=== PATIENT | female | born 1955 | race Caucasian/White ===

== ENCOUNTER 2018-11-25 04:51 | Inpatient (IN) | payer BC | END 2018-11-27 12:40 | disposition home or self-care (01) | LOC: 4TH 11-26 14:59 → ER 04:51 → ICU 05:45 | DX: E11.10 Type 2 diabetes mellitus with ketoacidosis without coma (principal); N17.9 Acute kidney failure, unspecified; E87.2 Acidosis; E86.1 Hypovolemia; E86.0 Dehydration; R00.0 Tachycardia, unspecified; J30.2 Other seasonal allergic rhinitis; Z79.4 Long term (current) use of insulin ==

== ENCOUNTER 2019-11-30 15:17 | Inpatient (IN) | payer BC, OTHER ==
[~2019-11-30] VITALS: Ht 154.9 cm; Wt 61.0 kg
[2019-11-30] VITALS (7 sets, daily range): BP systolic 87–131; BP diastolic 41–77
[~2019-11-30 15:17] MED LIST: EMPA1TAB PO; ESTRADIOL; INSU100I10 SC; INSU100I14 SQ; PANT40TA3 PO
[2019-11-30] MEDS ORDERED: NS IV 1000 ML 1,000 ML IV SCH (15:22)
--- NOTE | 2019-11-30 15:41 | ED General ---
General Stated Complaint: BLOOD SURGAR HIGH History of Present Illness Date Seen by Provider: Nov 30, 2019 Time Seen by Provider: 15:30 Initial Comments 64-year-old female presents for hyperglycemia. She reports her blood sugars have been running in the 200 to 300s. She takes Lantus 20 units twice a day. She reports taking it this morning, she had mild nausea afterwards and did not eat. 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. She was referred here for hyperglycemia. She has a history of DKA. She denies any recent illnesses or increased stress. She denies any polyuria, polydipsia or polyphagia. Timing/Duration: 24 Hours Severity: Mild Associated Systoms: Denies Symptoms Allergies and Home Medications Allergies Coded Allergies: metformin (Verified Allergy, Intermediate, 11/25/18) insulin lispro (Verified Adverse Reaction, Severe, MAKES PTS LEGS SEVERLY WEAK, 11/26/18) MAKES PTS LEGS SEVERLY WEAK Home Medications Empagliflozin/Linagliptin 1 Each Tablet, 1 TAB PO DAILY, (Reported) Insulin Aspart 300 Units/3 Ml Solution, 3 UNITS SQ AC Prescribed by: EMETERIO LANG on 11/27/18 1001 Insulin Glargine,Hum.rec.anlog 100 Unit/1 Ml Insuln.pen, 30 UNITS SC HS, (Reported) Pantoprazole Sodium 40 Mg Tablet.dr, 40 MG PO DAILY PRN for HEARTBURN, (Reported) Patient Home Medication List Home Medication List Reviewed: Yes Review of Systems Review of Systems Constitutional: see HPI; No fever; malaise, weakness EENTM: see HPI, no symptoms reported Respiratory: no symptoms reported, see HPI Cardiovascular: see HPI Gastrointestinal: no symptoms reported, see HPI, nausea (earlier today, none present at this time.) Genitourinary: no symptoms reported, see HPI; No dysuria, No frequency Musculoskeletal: no symptoms reported, see HPI Skin: no symptoms reported, see HPI Psychiatric/Neurological: No Symptoms Reported, See HPI Hematologic/Lymphatic: No Symptoms Reported, See HPI All Other Systems Reviewed Negative Unless Noted: Yes Past Xbsbzwv-Jfhwzl-Eyehwm Hx Past Med/Social Hx: Reviewed Nursing Past Med/Soc Hx Patient Social History Recent Foreign Travel: No Contact w/Someone Who Travel: No Recent Hopitalizations: Yes Seasonal Allergies Seasonal Allergies: Yes Past Medical History Surgeries: Yes (HYST/OVARIES INTACT; LEFT ARM BENIGN TUMOR REMOVED. 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 0.0oz. [id number]; 17.9 BMI Method:Stated General Appearance: No Apparent Distress, WD/WN Eyes: Bilateral Eye Normal Inspection, Bilateral Eye PERRL, Bilateral Eye EOMI HEENT: PERRL/EOMI, TMs Normal, Normal ENT Inspection, Pharynx Normal Neck: Full Range of Motion, Normal Inspection, Non Tender, Supple Respiratory: Chest Non Tender, Lungs Clear, Normal Breath Sounds Cardiovascular: Regular Rate, Rhythm, No Edema, No Murmur, Normal Peripheral Pulses Gastrointestinal: Normal Bowel Sounds, Non Tender, Soft Extremity: Normal Capillary Refill, Normal Inspection, Normal Range of Motion, Non Tender, No Pedal Edema Neurologic/Psychiatric: Alert, Oriented x3, No Motor/Sensory Deficits, Normal Mood/Affect, relationship management lead II-XII Norm as Tested Skin: Normal Color, Warm/Dry; No Cyanosis, No Diaphoresis, No Petechia, No Rash Lymphatic: No Adenopathy Focused Exam Lactate Level 11/30/19 15:55: Lactic Acid Level 1.74 Lactic Acid Level Laboratory Tests Test 11/30/19 15:55 Lactic Acid Level 1.74 MMOL/L (0.50-2.00) Progress/Results/Core Measures Suspected Sepsis SIRS Temperature: Pulse: Respiratory Rate: Laboratory Tests 11/30/19 15:55: White Blood Count 15.2H Blood Pressure / Mean: 11/30/19 15:55: Lactic Acid Level 1.74 Laboratory Tests 11/30/19 15:55: Creatinine 1.67H, Platelet Count 347, Total Bilirubin 0.3 Results/Orders Lab Results Laboratory Tests Test 11/30/19 15:27 11/30/19 15:44 11/30/19 15:55 11/30/19 16:58 Range/Units Glucometer > 600 *H 574 *H 70-110 MG/DL Blood Gas Puncture Site UNK Blood Gas Patient Temperature 36.6 Arterial Blood pH 7.20 *L 7.37-7.43 Arterial Blood Partial Pressure CO2 18 *L 35-45 MMHG Arterial Blood Partial Pressure O2 110 H 79-93 MMHG Arterial Blood HCO3 7 *L 23-27 MMOL/L Arterial Blood Total CO2 7.5 L 21.0-31.0 MMOL/L Arterial Blood Oxygen Saturation 98 94-100 % Arterial Blood Base Excess -19.8 L -2.5-2.5 MMOL/L Mehran Test UNK Blood Gas Ventilator Setting NO Blood Gas Inspired Oxygen UNK White Blood Count 15.2 H 4.3-11.0 10^3/uL Red Blood Count 4.41 4.35-5.85 10^6/uL Hemoglobin 12.9 11.5-16.0 G/DL Hematocrit 39 35-52 % Mean Corpuscular Volume 88 80-99 FL Mean Corpuscular Hemoglobin 29 25-34 PG Mean Corpuscular Hemoglobin Concent 33 32-36 G/DL Red Cell Distribution Width 13.2 10.0-14.5 % Platelet Count 347 130-400 10^3/uL Mean Platelet Volume 10.7 H 7.4-10.4 FL Neutrophils (%) (Auto) 90 H 42-75 % Lymphocytes (%) (Auto) 6 L 12-44 % Monocytes (%) (Auto) 5 0-12 % Eosinophils (%) (Auto) 0 0-10 % Basophils (%) (Auto) 0 0-10 % Neutrophils # (Auto) 13.6 H 1.8-7.8 X 10^3 Lymphocytes # (Auto) 0.8 L 1.0-4.0 X 10^3 Monocytes # (Auto) 0.7 0.0-1.0 X 10^3 Eosinophils # (Auto) 0.0 0.0-0.3 10^3/uL Basophils # (Auto) 0.0 0.0-0.1 10^3/uL Neutrophils % (Manual) 85 % Lymphocytes % (Manual) 10 % Monocytes % (Manual) 4 % Eosinophils % (Manual) 0 % Basophils % (Manual) 0 % Band Neutrophils 1 % Blood Morphology Comment NORMAL Sodium Level 129 L 135-145 MMOL/L Potassium Level 5.4 H 3.6-5.0 MMOL/L Chloride Level 94 L 98-107 MMOL/L Carbon Dioxide Level 5 *L 21-32 MMOL/L Anion Gap 30 H 5-14 MMOL/L Blood Urea Nitrogen 30 H 7-18 MG/DL Creatinine 1.67 H 0.60-1.30 MG/DL Estimat Glomerular Filtration Rate 31 BUN/Creatinine Ratio 18 Glucose Level 702 *H 70-105 MG/DL Lactic Acid Level 1.74 0.50-2.00 MMOL/L Calcium Level 9.7 8.5-10.1 MG/DL Corrected Calcium 9.5 8.5-10.1 MG/DL Total Bilirubin 0.3 0.1-1.0 MG/DL Aspartate Amino Transf (AST/SGOT) 19 5-34 U/L Alanine Aminotransferase (ALT/SGPT) 18 0-55 U/L Alkaline Phosphatase 135 40-136 U/L Total Protein 7.2 6.4-8.2 GM/DL Albumin 4.3 3.2-4.5 GM/DL Beta-Hydroxybutyrate (Chem panel) 11.68 H 0.00-0.27 MMOL/L Test 11/30/19 17:06 11/30/19 18:00 Range/Units Urine Color YELLOW Urine Clarity CLEAR Urine pH 5.0 5-9 Urine Specific [place] 1.025 H 1.016-1.022 Urine Protein NEGATIVE NEGATIVE Urine Glucose (UA) 3+ H NEGATIVE Urine Ketones 3+ H NEGATIVE Urine Nitrite NEGATIVE NEGATIVE Urine Bilirubin NEGATIVE NEGATIVE Urine Urobilinogen 0.2 < = 1.0 MG/DL Urine Leukocyte Esterase NEGATIVE NEGATIVE Urine RBC (Auto) TRACE-I NEGATIVE Urine RBC RARE /HPF Urine WBC RARE /HPF Urine Squamous Epithelial Cells 0-2 /HPF Urine Crystals NONE /LPF Urine Bacteria TRACE /HPF Urine Casts NONE /LPF Urine Mucus NEGATIVE /LPF Urine Culture Indicated NO Glucometer 432 *H 70-110 MG/DL My Orders Orders - IVAN DUMAS Cbc With Automated Diff (11/30/19 15:22) Comprehensive Metabolic Panel (11/30/19 15:22) Ua Culture If Indicated (11/30/19 15:22) Ed Iv/Invasive Line Start (11/30/19 15:22) Ns Iv 1000 Ml (Sodium Chloride 0.9%) (11/30/19 15:22) Accucheck Stat ONCE (11/30/19 15:22) Arterial Blood Gas (11/30/19 15:38) Insulin Aspart (Novolog) (Novolog (Charg (11/30/19 15:45) Lactic Acid Analyzer (11/30/19 15:54) Sodium Bicarbonate 8.4% Vial (Sodium Bic (11/30/19 16:30) Manual Differential (11/30/19 15:55) Accucheck Stat ONCE (11/30/19 16:43) Hemoglobin A1c (11/30/19 17:07) Ed Iv/Invasive Line Start (11/30/19 17:08) Ns Iv 1000 Ml (Sodium Chloride 0.9%) (11/30/19 17:08) Medications Given in ED Current Medications Medications Dose Ordered Sig/Rosy Route Start Time Stop Time Status Last Admin Dose Admin Insulin Aspart 10 unit ONCE ONCE SC 11/30/19 15:45 11/30/19 15:46 DC 11/30/19 16:05 10 UNIT Sodium Bicarbonate 50 meq ONCE ONCE IV 11/30/19 16:30 11/30/19 16:31 DC 11/30/19 16:57 50 MEQ Vital Signs/I&O 11/30/19 11/30/19 11/30/19 11/30/19 15:25 17:45 17:56 18:00 Temp 36.6 36.8 Pulse 112 114 109 Resp 22 B/P (MAP) 152/86 (108) 131/77 (95) O2 Delivery Room Air 11/30/19 18:00 Pulse 108 Resp 20 B/P (MAP) 122/74 (90) Pulse Ox 99 O2 Delivery Room Air Capillary Refill : Progress Note : Time: 15:30 Progress Note Patient seen and evaluated, will obtain Accu-Chek, labs and address glucose accordingly. Normal saline 1 L per IV. 1545 Glucometer greater than 600, Will give Humalog insulin 10 units subcutaneous now. 1600 ABG show DKA, pH is 7.2, bicarbonate is 7. Awaiting other labs. Will give 1 amp of sodium bicarbonate. [address] Gault about patient, he agreed to admit to ICU for insulin drip and management of DKA. 1700 discussed plan of care with patient, her and family agree with this. No questions answered. She's can continue to be alert and oriented with stable vital signs other than a pulse of 90-110. She reports no nausea or vomiting. Will follow DKA protocol. Departure Impression Primary Impression: Hyperglycemia Additional Impression: Diabetic ketoacidosis Qualified Codes: E11.10 - Type 2 diabetes mellitus with ketoacidosis without coma Disposition: ADMITTED INPATIENT Condition: Stable Admissions Decision to Admit Reason: Admit from ER (General) Decision to Admit/Date: Nov 30, 2019 Time/Decision to Admit Time: 17:00 Departure-Patient Inst. Referrals: VY MCINTYRE MD (PCP/Family) Primary Care Physician IVAN DUMAS Nov 30, 2019 15:41
[2019-11-30] MEDS ORDERED: inSUlin ASPART (NovoLOG) 1 UNIT/0.01 ML (CHARGE PER UNIT) SC ONE (15:45)
[2019-11-30 15:52] LABS: ABG BASE EXCESS -19.8 MMOL/L (-2.5-2.5); ABG OXYGEN SATURATION 98 % (94-100); ABG PO2 110 MMHG (79-93); ABG TCO2 7.5 MMOL/L (21.0-31.0)
[2019-11-30 16:02] LABS: ABG PCO2 18 MMHG (35-45)
[2019-11-30 16:03] LABS: PATIENT TEMP 36.6; VENTILATOR NO
[2019-11-30 16:16] LABS: BASOPHILS % (AUTO) 0 % (0-10); EOSINOPHILS % (AUTO) 0 % (0-10); HEMATOCRIT 39 % (35-52); HEMOGLOBIN 12.9 G/DL (11.5-16.0); LYMPHOCYTES # (AUTO) 0.8 X 10^3 (1.0-4.0); LYMPHOCYTES % (AUTO) 6 % (12-44); MEAN CORPUSCULAR HEMOGLOBIN 29 PG (25-34); MEAN CORPUSCULAR HGB CONC 33 G/DL (32-36); MEAN CORPUSCULAR VOLUME 88 FL (80-99); MEAN PLATELET VOLUME 10.7 FL (7.4-10.4); MONOCYTES # (AUTO) 0.7 X 10^3 (0.0-1.0); MONOCYTES % (AUTO) 5 % (0-12); NEUTROPHILS # (AUTO) 13.6 X 10^3 (1.8-7.8); NEUTROPHILS % (AUTO) 90 % (42-75); PLATELET COUNT 347 10^3/uL (130-400); RED CELL DISTRIBUTION WIDTH 13.2 % (10.0-14.5); WHITE BLOOD COUNT 15.2 10^3/uL (4.3-11.0)
[2019-11-30] MEDS ORDERED: SODIUM BICARB 8.4% 50 MEQ/50 ML VIAL IV ONE (16:30)
[2019-11-30 16:43] LABS: ALBUMIN 4.3 GM/DL (3.2-4.5); BILIRUBIN,TOTAL 0.3 MG/DL (0.1-1.0); CALCIUM 9.7 MG/DL (8.5-10.1); CREATININE SERUM 1.67 MG/DL (0.60-1.30); POTASSIUM 5.4 MMOL/L (3.6-5.0); TOTAL PROTEIN 7.2 GM/DL (6.4-8.2)
[2019-11-30 17:01] LABS: BAND NEUTROPHILS 1 %; BASOPHILS % (MANUAL) 0 %; EOSINOPHILS % (MANUAL) 0 %; LYMPHOCYTES % (MANUAL) 10 %; MONOCYTES % (MANUAL) 4 %; NEUTROPHILS % (MANUAL) 85 %; RBC MORPH NORMAL
[2019-11-30 17:14] LABS: BILIRUBIN,URINE NEGATIVE (NEGATIVE); CLARITY,URINE CLEAR; COLOR,URINE YELLOW; GLUCOSE, URINE (UA) 3+ (NEGATIVE); KETONES,URINE 3+ (NEGATIVE); LEUKOCYTE ESTERASE ,URINE NEGATIVE (NEGATIVE); NITRITE,URINE NEGATIVE (NEGATIVE); PROTEIN,URINE NEGATIVE (NEGATIVE)
[2019-11-30] MEDS: NS IV 1000 ML 1,000 ML IV SCH ×2 (17:20→17:21)
[2019-11-30 17:25] LABS: BACTERIA,URINE TRACE /HPF; RBC,URINE RARE /HPF; SQUAMOUS EPITHELIAL CELL,UR 0-2 /HPF; WBC,URINE RARE /HPF
[2019-11-30] MEDS ORDERED: 1/2 NS IV SOLUTION 1,000 ML IV ONE (17:57)
[2019-11-30] MEDS ORDERED: POTASSIUM CL 10MEQ/50ML IVPB 50 ML IV SCH (18:15)
[2019-11-30] MEDS ORDERED: inSUlin REGULAR TPN/DRIP ONLY 250 UNITS in NORMAL SALINE 250 ML IV SCH (18:15)
[2019-11-30] MEDS ORDERED: ACETAMINOPHEN 325 MG TABLET PO PRN (18:30)
[2019-11-30] MEDS ORDERED: CATHETER FLUSH 10 ML SYR IV PRN (18:30)
[2019-11-30] MEDS: 1/2 NS IV SOLUTION 1,000 ML IV SCH ×2 (18:59→22:18)
[2019-11-30] MEDS ORDERED: RT-ALBUTEROL/IPRATROPIUM 3 ML (DUONEB) VIAL INH PRN (19:15)
[2019-11-30 19:25] LABS: CALCIUM 9.1 MG/DL (8.5-10.1); CREATININE SERUM 1.47 MG/DL (0.60-1.30); POTASSIUM 4.3 MMOL/L (3.6-5.0)
[2019-11-30] MEDS: POTASSIUM CL 10MEQ/50ML IVPB 50 ML IV SCH ×3 (20:01→23:57)
[2019-11-30] MEDS: ONDANSETRON 4 MG/2 ML (SDV) Z0FRAN IV PRN (23:55)
[2019-12-01] VITALS (17 sets, daily range): BP systolic 85–114; BP diastolic 47–83
[2019-12-01] MEDS: D5 1/2 NS 1000 ML IV SOLUTION 1,000 ML IV SCH ×3 (00:28→08:37)
[2019-12-01] MEDS: 1/2 NS IV SOLUTION 1,000 ML IV SCH ×2 (02:01→05:09)
[2019-12-01] MEDS: POTASSIUM CL 10MEQ/50ML IVPB 50 ML IV SCH ×4 (02:01→08:38)
[2019-12-01 03:47] LABS: BASOPHILS % (AUTO) 0 % (0-10); EOSINOPHILS # (AUTO) 0.1 10^3/uL (0.0-0.3); EOSINOPHILS % (AUTO) 1 % (0-10); HEMATOCRIT 30 % (35-52); LYMPHOCYTES # (AUTO) 3.1 X 10^3 (1.0-4.0); LYMPHOCYTES % (AUTO) 25 % (12-44); MEAN CORPUSCULAR HEMOGLOBIN 29 PG (25-34); MEAN CORPUSCULAR HGB CONC 34 G/DL (32-36); MEAN CORPUSCULAR VOLUME 87 FL (80-99); MEAN PLATELET VOLUME 10.1 FL (7.4-10.4); MONOCYTES # (AUTO) 1.5 X 10^3 (0.0-1.0); MONOCYTES % (AUTO) 12 % (0-12); NEUTROPHILS # (AUTO) 7.8 X 10^3 (1.8-7.8); NEUTROPHILS % (AUTO) 62 % (42-75); PLATELET COUNT 297 10^3/uL (130-400); RED CELL DISTRIBUTION WIDTH 13.1 % (10.0-14.5); WHITE BLOOD COUNT 12.5 10^3/uL (4.3-11.0)
[2019-12-01 03:57] LABS: HEMOGLOBIN 10.3 G/DL (11.5-16.0)
[2019-12-01 04:13] LABS: ALBUMIN 3.2 GM/DL (3.2-4.5); BILIRUBIN,TOTAL 0.3 MG/DL (0.1-1.0); CALCIUM 8.2 MG/DL (8.5-10.1); CREATININE SERUM 1.05 MG/DL (0.60-1.30); PHOSPHORUS 1.9 MG/DL (2.3-4.7); POTASSIUM 4.1 MMOL/L (3.6-5.0); TOTAL PROTEIN 5.2 GM/DL (6.4-8.2)
[2019-12-01 04:38] LABS: MAGNESIUM 1.6 MG/DL (1.6-2.4)
[2019-12-01] MEDS: MAGNESIUM 1 GM/100 ML IVPB 100 ML IV SCH (05:23)
[2019-12-01] MEDS ORDERED: MAGNESIUM 1 GM/100 ML IVPB 100 ML IV SCH (06:00)
[2019-12-01] MEDS ORDERED: POTASSIUM CL 10MEQ/50ML IVPB 50 ML IV SCH (06:00)
[2019-12-01] MEDS ORDERED: KCL 20 MEQ TAB (K-DUR) PO SCH (06:00)
[2019-12-01] MEDS ORDERED: LINA5TAB PO (09:04)
[2019-12-01] MEDS ORDERED: INSU100I29 SQ (09:04)
[2019-12-01] MEDS ORDERED: EMPA25TA PO (09:04)
[2019-12-01] MEDS ORDERED: LISI-552 PO (09:04)
--- NOTE | 2019-12-01 09:04 | NUR ---
SPOKE WITH THE PATIENT ABOUT HER MEDICATIONS. SHE LISTED THEM TO ME, I CALLED [facility] TO VERIFY DOSES AND FILL DATES. [facility] FILLED: 11-08-19 LISINOPRIL 20MG DAILY 11-08-19 TRADJENTA 5MG DAILY 11-08-19 JARDIANCE 25MG DAILY 10-06-19 LEVEMIR PENS 20 UNITS BID SHE STATES SHE USED TO TAKE ADVIL NEEDED BUT WAS RECENTLY TOLD TO STOP TAKING THAT. SHE MAY START USING TYLENOL PRN OTC BUT DOES NOT TAKE ANY OTHER OTC VITAMINS OR SUPPLEMENTS.
--- NOTE | 2019-12-01 09:08 | Diagnostic Imaging Report ---
INDICATION: Dyspnea and diabetic ketoacidosis. Frontal chest obtained at 0356 a.m. is compared to 11/25/2018. Heart is normal in size. Mediastinal silhouette is unremarkable lungs show no focal infiltrates. There is a calcified granuloma in the left upper lobe which is unchanged. There is no pneumothorax or pleural fluid. IMPRESSION: No acute process in the chest and no change from 11/25/2018. Dictated by: Dictated on workstation # [id number]
--- NOTE | 2019-12-01 09:51 | History & Physical ---
HPI History of Present Illness: Pt stated that yesterday morning her blood sugar was 355, she took shot of levemir 20 units and went to work, but blood sugar went up to above 500. She did not eat anything in between the readings. She usually takes levemir 20 units twice daily, does not use mealtime, denies being out of insulin or missing doses. She has had very high blood sugar requiring hospital admission last November. She denies any preexisting illness and felt fine until her blood sugar started going up. Denies fever, nasal congestion, sore throat, chest pain, cough, vomiting, diarrhea, constipation, dysuria. She did have red itchy rash that started after she was on Jardiance for about 3 weeks, 2 days ago she stopped it and rash has resolved. She does admit nausea and had diarrhea starting after her blood sugar was high. She did vomit some green appearing vomit at clinic yesterday pm when she drank a few sips of water. 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 Patients Allergies have been reviewed. Allergies Coded Allergies: metformin (Verified Allergy, Intermediate, 11/25/18) insulin lispro (Verified Adverse Reaction, Severe, MAKES PTS LEGS SEVERLY WEAK, 11/26/18) MAKES PTS LEGS SEVERLY WEAK AZD-Owcwla-Scsoep Hx Patient Social History Alcohol Use: Denies Use Recreational Drug Use: No Smoking Status: Never a Smoker 2nd Hand Smoke Exposure: No Recent Foreign Travel: No Contact w/other who traveled: No Recent Hopitalizations: No Recent Infectious Disease Expo: No Immunizations Up To Date Date of Influenza Vaccine: Oct 26, 2019 Past Medical History PMHx: Diabetes Hypertension SurgHx: Lump removal from upper left arm Gall bladder Partial hysterectomy Family Medical History Significant Family History: Heart Disease, Cancer, CVA, Diabetes Review of Systems ([facility]) Constitutional: see HPI EENTM: see HPI Respiratory: short of breath Cardiovascular: see HPI Gastrointestinal: see HPI Genitourinary: see HPI Musculoskeletal: No joint pain, No muscle pain Skin: see HPI Psychiatric/Neurological: Denies Anxiety, Denies Depressed Reviewed Test Results Reviewed Test Results Lab Laboratory Tests Test 11/30/19 15:27 11/30/19 15:44 11/30/19 15:55 11/30/19 16:58 Range/Units Glucometer > 600 *H 574 *H 70-110 MG/DL Blood Gas Puncture Site UNK Blood Gas Patient Temperature 36.6 Arterial Blood pH 7.20 *L 7.37-7.43 Arterial Blood Partial Pressure CO2 18 *L 35-45 MMHG Arterial Blood Partial Pressure O2 110 H 79-93 MMHG Arterial Blood HCO3 7 *L 23-27 MMOL/L Arterial Blood Total CO2 7.5 L 21.0-31.0 MMOL/L Arterial Blood Oxygen Saturation 98 94-100 % Arterial Blood Base Excess -19.8 L -2.5-2.5 MMOL/L Mehran Test UNK Blood Gas Ventilator Setting NO Blood Gas Inspired Oxygen UNK White Blood Count 15.2 H 4.3-11.0 10^3/uL Red Blood Count 4.41 4.35-5.85 10^6/uL Hemoglobin 12.9 11.5-16.0 G/DL Hematocrit 39 35-52 % Mean Corpuscular Volume 88 80-99 FL Mean Corpuscular Hemoglobin 29 25-34 PG Mean Corpuscular Hemoglobin Concent 33 32-36 G/DL Red Cell Distribution Width 13.2 10.0-14.5 % Platelet Count 347 130-400 10^3/uL Mean Platelet Volume 10.7 H 7.4-10.4 FL Neutrophils (%) (Auto) 90 H 42-75 % Lymphocytes (%) (Auto) 6 L 12-44 % Monocytes (%) (Auto) 5 0-12 % Eosinophils (%) (Auto) 0 0-10 % Basophils (%) (Auto) 0 0-10 % Neutrophils # (Auto) 13.6 H 1.8-7.8 X 10^3 Lymphocytes # (Auto) 0.8 L 1.0-4.0 X 10^3 Monocytes # (Auto) 0.7 0.0-1.0 X 10^3 Eosinophils # (Auto) 0.0 0.0-0.3 10^3/uL Basophils # (Auto) 0.0 0.0-0.1 10^3/uL Neutrophils % (Manual) 85 % Lymphocytes % (Manual) 10 % Monocytes % (Manual) 4 % Eosinophils % (Manual) 0 % Basophils % (Manual) 0 % Band Neutrophils 1 % Blood Morphology Comment NORMAL Sodium Level 129 L 135-145 MMOL/L Potassium Level 5.4 H 3.6-5.0 MMOL/L Chloride Level 94 L 98-107 MMOL/L Carbon Dioxide Level 5 *L 21-32 MMOL/L Anion Gap 30 H 5-14 MMOL/L Blood Urea Nitrogen 30 H 7-18 MG/DL Creatinine 1.67 H 0.60-1.30 MG/DL Estimat Glomerular Filtration Rate 31 BUN/Creatinine Ratio 18 Glucose Level 702 *H 70-105 MG/DL Lactic Acid Level 1.74 0.50-2.00 MMOL/L Calcium Level 9.7 8.5-10.1 MG/DL Corrected Calcium 9.5 8.5-10.1 MG/DL Total Bilirubin 0.3 0.1-1.0 MG/DL Aspartate Amino Transf (AST/SGOT) 19 5-34 U/L Alanine Aminotransferase (ALT/SGPT) 18 0-55 U/L Alkaline Phosphatase 135 40-136 U/L Total Protein 7.2 6.4-8.2 GM/DL Albumin 4.3 3.2-4.5 GM/DL Beta-Hydroxybutyrate (Chem panel) 11.68 H 0.00-0.27 MMOL/L Test 11/30/19 17:06 11/30/19 18:00 11/30/19 18:59 11/30/19 19:00 Range/Units Urine Color YELLOW Urine Clarity CLEAR Urine pH 5.0 5-9 Urine Specific [place] 1.025 H 1.016-1.022 Urine Protein NEGATIVE NEGATIVE Urine Glucose (UA) 3+ H NEGATIVE Urine Ketones 3+ H NEGATIVE Urine Nitrite NEGATIVE NEGATIVE Urine Bilirubin NEGATIVE NEGATIVE Urine Urobilinogen 0.2 < = 1.0 MG/DL Urine Leukocyte Esterase NEGATIVE NEGATIVE Urine RBC (Auto) TRACE-I NEGATIVE Urine RBC RARE /HPF Urine WBC RARE /HPF Urine Squamous Epithelial Cells 0-2 /HPF Urine Crystals NONE /LPF Urine Bacteria TRACE /HPF Urine Casts NONE /LPF Urine Mucus NEGATIVE /LPF Urine Culture Indicated NO Glucometer 432 *H 372 H 70-110 MG/DL Sodium Level 133 L 135-145 MMOL/L Potassium Level 4.3 3.6-5.0 MMOL/L Chloride Level 100 98-107 MMOL/L Carbon Dioxide Level 11 L 21-32 MMOL/L Anion Gap 22 H 5-14 MMOL/L Blood Urea Nitrogen 28 H 7-18 MG/DL Creatinine 1.47 H 0.60-1.30 MG/DL Estimat Glomerular Filtration Rate 36 BUN/Creatinine Ratio 19 Glucose Level 418 *H 70-105 MG/DL Calcium Level 9.1 8.5-10.1 MG/DL Test 11/30/19 21:34 11/30/19 22:22 11/30/19 23:27 12/01/19 00:22 Range/Units Glucometer 355 H 303 H 251 H 144 H 70-110 MG/DL Test 12/01/19 01:57 12/01/19 02:51 12/01/19 02:59 12/01/19 03:57 Range/Units Glucometer 166 H 155 H 165 H 70-110 MG/DL White Blood Count 12.5 H 4.3-11.0 10^3/uL Red Blood Count 3.50 L 4.35-5.85 10^6/uL Hemoglobin 10.3 #L 11.5-16.0 G/DL Hematocrit 30 L 35-52 % Mean Corpuscular Volume 87 80-99 FL Mean Corpuscular Hemoglobin 29 25-34 PG Mean Corpuscular Hemoglobin Concent 34 32-36 G/DL Red Cell Distribution Width 13.1 10.0-14.5 % Platelet Count 297 130-400 10^3/uL Mean Platelet Volume 10.1 7.4-10.4 FL Neutrophils (%) (Auto) 62 42-75 % Lymphocytes (%) (Auto) 25 12-44 % Monocytes (%) (Auto) 12 0-12 % Eosinophils (%) (Auto) 1 0-10 % Basophils (%) (Auto) 0 0-10 % Neutrophils # (Auto) 7.8 1.8-7.8 X 10^3 Lymphocytes # (Auto) 3.1 1.0-4.0 X 10^3 Monocytes # (Auto) 1.5 H 0.0-1.0 X 10^3 Eosinophils # (Auto) 0.1 0.0-0.3 10^3/uL Basophils # (Auto) 0.0 0.0-0.1 10^3/uL Sodium Level 133 L 135-145 MMOL/L Potassium Level 4.1 3.6-5.0 MMOL/L Chloride Level 108 H 98-107 MMOL/L Carbon Dioxide Level 17 L 21-32 MMOL/L Anion Gap 8 5-14 MMOL/L Blood Urea Nitrogen 23 H 7-18 MG/DL Creatinine 1.05 0.60-1.30 MG/DL Estimat Glomerular Filtration Rate 53 BUN/Creatinine Ratio 22 Glucose Level 151 H 70-105 MG/DL Calcium Level 8.2 L 8.5-10.1 MG/DL Corrected Calcium 8.8 8.5-10.1 MG/DL Phosphorus Level 1.9 L 2.3-4.7 MG/DL Magnesium Level 1.6 1.6-2.4 MG/DL Total Bilirubin 0.3 0.1-1.0 MG/DL Aspartate Amino Transf (AST/SGOT) 13 5-34 U/L Alanine Aminotransferase (ALT/SGPT) 12 0-55 U/L Alkaline Phosphatase 94 40-136 U/L Total Protein 5.2 L 6.4-8.2 GM/DL Albumin 3.2 3.2-4.5 GM/DL Test 12/01/19 04:59 12/01/19 06:30 12/01/19 07:30 12/01/19 08:40 Range/Units Glucometer 132 H 186 H 188 H 278 H 70-110 MG/DL Test 12/01/19 09:44 Range/Units Glucometer 258 H 70-110 MG/DL Physical Exam-(CHC) Physical Exam Vital Signs VS - Last 72 Hours, by Label 11/30/19 11/30/19 11/30/19 11/30/19 15:25 17:45 17:56 18:00 Temp 36.6 36.8 Pulse 112 114 109 Resp 22 B/P (MAP) 152/86 (108) 131/77 (95) O2 Delivery Room Air 11/30/19 11/30/19 11/30/19 11/30/19 18:00 18:30 19:00 19:00 Pulse 108 111 114 Resp 20 23 B/P (MAP) 122/74 (90) 101/61 (74) Pulse Ox 99 97 99 O2 Delivery Room Air Room Air Room Air 11/30/19 11/30/19 11/30/19 11/30/19 19:10 19:14 19:20 19:30 Pulse 106 B/P (MAP) Pulse Ox 99 99 99 O2 Delivery Room Air Room Air Room Air 11/30/19 11/30/19 11/30/19 11/30/19 20:00 20:00 21:00 22:00 Temp 36.7 Pulse 105 111 100 Resp 19 20 17 B/P (MAP) 93/41 (58) 87/53 (64) 111/58 (75) Pulse Ox 99 98 96 O2 Delivery Room Air Room Air Room Air 11/30/19 11/30/19 11/30/19 11/30/19 22:25 23:00 23:30 23:30 Temp 36.7 Pulse 101 Resp 21 B/P (MAP) 100/58 (72) Pulse Ox 96 98 O2 Delivery Room Air Room Air 12/01/19 12/01/19 12/01/19 12/01/19 00:00 01:00 01:00 02:00 Pulse 98 105 93 92 Resp 16 16 15 B/P (MAP) 113/69 (84) 86/63 (71) 97/62 (74) Pulse Ox 98 97 97 O2 Delivery Room Air Room Air Room Air 12/01/19 12/01/19 12/01/19 12/01/19 02:45 03:00 04:00 04:00 Temp 36.6 Pulse 88 95 87 Resp 13 16 18 B/P (MAP) 92/47 (62) 97/60 (72) Pulse Ox 96 98 99 96 O2 Delivery Room Air Room Air Room Air Room Air 12/01/19 12/01/19 12/01/19 12/01/19 05:00 06:00 07:00 07:00 Pulse 93 85 82 84 Resp 20 17 16 B/P (MAP) 97/58 (71) 85/48 (60) 92/51 (65) Pulse Ox 98 98 98 O2 Delivery Room Air Room Air Room Air 12/01/19 12/01/19 12/01/19 12/01/19 08:00 08:00 09:00 10:00 Pulse 92 85 85 Resp 11 9 17 B/P (MAP) 106/73 (84) 114/83 (93) 93/67 (76) Pulse Ox 100 99 99 98 O2 Delivery Room Air Room Air Room Air Room Air 12/01/19 12/01/19 12/01/19 12/01/19 11:00 12:00 12:00 12:05 Temp 37.1 Pulse 90 80 Resp 37 16 B/P (MAP) 85/69 (74) Pulse Ox 97 97 97 O2 Delivery Room Air Room Air Room Air 12/01/19 12/01/19 12/01/19 12/01/19 12:08 12:13 12:30 13:00 Temp 36.6 Pulse 88 79 Resp 17 B/P (MAP) 105/80 (88) Pulse Ox 95 95 97 O2 Delivery Room Air Room Air 12/01/19 12/01/19 12/01/19 13:00 14:00 15:00 Pulse 81 78 81 Resp 15 16 B/P (MAP) 93/62 (72) Pulse Ox 95 96 O2 Delivery Room Air Room Air Capillary Refill : Less Than 3 Seconds General Appearance: no apparent distress Respiratory: lungs clear, normal breath sounds Cardiovascular: regular rate, rhythm, no murmur Gastrointestinal: normal bowel sounds, non tender, soft Extremities: no pedal edema Neurologic/Psychiatric: alert, normal mood/affect Skin: normal color, warm/dry Assessment/Plan Assessment/Plan Admission Status: Inpatient Order (span 2 midnights) Reason for Inpatient Admission: Diabetic ketoacidosis requiring IV insulin drip. (1) DKA (diabetic ketoacidoses) Status: Acute Assessment & Plan: On insulin drip since admit, gap is closed and blood sugar down this morning, will start levemir and d/c drip. Suspect occurred due to stopping empagliflozin, but it does sound as if she had a reaction to it, so will need to adjust other meds. Qualifiers: (2) SEAN (acute kidney injury) Status: Resolved (3) DVT prophylaxis Status: Acute Assessment & Plan: Enoxaparin Clinical Quality Measures DVT/VTE Risk/Contraindication: Risk Factor Score Per Nursin RFS Level Per Nursing on Admit: 3=High URVASHI ARTEAGA MD Dec 01, 2019 09:51
[2019-12-01] MEDS: inSUlin ASPART (NovoLOG) 1 UNIT/0.01 ML (CHARGE PER UNIT) SC SCH ×3 (12:08→20:39)
--- NOTE | 2019-12-01 15:35 | NUR ---
1515 PT TO ROOM 428 VIA W/C ACCOMPANIED BY THIS RN. ALL PERSONAL BELONGINGS SENT DOWN WITH PT. REPORT GIVEN TO PETRA Martínez RN.
[2019-12-01] MEDS ORDERED: ENOXAPARIN 40 MG/0.4 ML (LOVENOX) SYR SQ SCH (16:00)
[2019-12-02 00:18] VITALS: BP 113/72
[2019-12-02] MEDS: inSUlin ASPART (NovoLOG) 1 UNIT/0.01 ML (CHARGE PER UNIT) SC SCH ×2 (06:54→11:00)
[2019-12-02 08:00] VITALS: BP 130/77
[2019-12-02] MEDS: ONDANSETRON 4 MG/2 ML (SDV) Z0FRAN IV PRN (08:40)
[2019-12-02] MEDS ORDERED: ONDA4TAB11 PO (10:56)
[2019-12-02] MEDS ORDERED: INSU100I29 SQ (10:56)
--- NOTE | 2019-12-02 10:59 | Discharge Summary ---
Discharge Summary Hospital Course Problems/Diagnosis: (1) DKA (diabetic ketoacidoses) Status: Resolved Resolution Date/Time: 12/02/19 @ 10:58 Assessment & Plan: On insulin drip since admit, gap is closed and blood sugar down this morning, will start levemir and d/c drip. Suspect occurred due to stopping empagliflozin, but it does sound as if she had a reaction to it, so will need to adjust other meds. 12/02 stable on levemir 40 units BID, had low blood sugar this am, d/c on levemir 30 units BID and tradjenta, stop empagliflozin due to reaction Qualifiers: (2) SEAN (acute kidney injury) Status: Resolved Resolution Date/Time: 12/01/19 @ 15:54 (3) Nausea & vomiting Status: Acute Assessment & Plan: Some nausea persistent at d/c but good oral intake, discharged with script for zofran. Hospital Course Date of Admission: Dec 01, 2019 at 10:42 Admission Diagnosis : Family Physician/Provider: Beverley Quiros Aprn Date of Discharge: 12/02/19 Discharge Diagnosis: See problem list Hospital Course: see problem list Labs and Pending Lab Test: Laboratory Tests 12/01/19 12:02: Glucometer 187H 12/01/19 13:16: Glucometer 205H 12/01/19 14:08: Glucometer 175H 12/01/19 15:43: Glucometer 138H 12/02/19 06:23: Glucometer 56*L 12/02/19 07:03: Glucometer 105 Microbiology 11/30/19 MRSA Screen - Final, Complete MRSA not isolated Home Meds Active Ondansetron Odt (Ondansetron) 4 Mg Tab.rapdis 4 Mg PO Q4H PRN Levemir Flextouch (Insulin Detemir) 100 Unit/1 Ml Insuln.pen 30 Unit SQ BID Reported Lisinopril 20 Mg Tablet 20 Mg PO DAILY Tradjenta (Linagliptin) 5 Mg Tablet 5 Mg PO DAILY Jardiance (Empagliflozin) 25 Mg Tablet 25 Mg PO DAILY Assessment/Pt DC Instructions Follow up with Lisa Yin APRN at [facility] on 12/08 at 1 pm. Discharge Diet: ADA Diet Activity as Tolerated: Yes Discharge Physical Examination Allergies: Coded Allergies: metformin (Verified Allergy, Intermediate, 11/25/18) insulin lispro (Verified Adverse Reaction, Severe, MAKES PTS LEGS SEVERLY WEAK, 11/26/18) MAKES PTS LEGS SEVERLY WEAK General Appearance: No Apparent Distress, WD/WN Respiratory: Lungs Clear Cardiovascular: Regular Rate, Rhythm, No Murmur Gastrointestinal: Normal Bowel Sounds, Non Tender, Soft Extremity: No Pedal Edema Skin: Normal Color, Warm/Dry Neurologic/Psychiatric: Alert Clinical Quality Measures DVT/VTE Risk/Contraindication: Risk Factor Score Per Nursin RFS Level Per Nursing on Admit: 3=High URVASHI HAYES MD Dec 02, 2019 10:59
[2019-12-02 13:50] VITALS: BP 130/77
== END 2019-12-02 13:50 | disposition home or self-care (01) | DRG 638 ==
LOC: EDUNIT# 15:17 → ER 15:19 → ICU 17:00 → UNDOADMOB 17:00 → ICU 12-01 10:42 → OBSVTOIN 12-01 10:42 → 4TH 12-01 15:26
PROVIDERS: ADMIT Family Medicine; ATTEND Family Medicine
DX: E11.10 Type 2 diabetes mellitus with ketoacidosis without coma (principal); N17.9 Acute kidney failure, unspecified; E11.65 Type 2 diabetes mellitus with hyperglycemia; I10 Essential (primary) hypertension; Z79.4 Long term (current) use of insulin; Z88.8 Allergy status to other drugs, medicaments and biological substances
CPT/HCPCS: 36415; 71045; 80048; 80053; 81000; 82010; 82805; 82962; 83036; 83605; 83735; 84100; 85007; 85025; 85027; 87081; 96372; 96374; G0378

== ENCOUNTER → 2021-04-17 | Outpatient (CLI) | payer MEDICARE, OTHER ==
[~2021-04-17] MED LIST changes: +EMPA25TA PO; +INSU100I29 SQ; +LINA5TAB PO; +LISI20TA26 PO; +ONDA4TAB11 PO; -PANT40TA3 PO; +PANT40TA52 PO
--- NOTE | 2021-04-17 15:37 | Diagnostic Imaging Report ---
INDICATION: 66-year-old postmenopausal female. COMPARISON: None. FINDINGS: AP Spine L1-L4: [BMD (g/cm2): 1.140] [T-Score: -0.5] [Z-Score: 1.1] [BMD Previous: na] [BMD % Change: na] LT Hip Neck: [BMD (g/cm2): 0.841] [T-Score: -1.4] [Z-Score: 0.1] LT Hip Total: [BMD (g/cm2):0.958] [T-Score:-0.4] [Z-Score: 0.9] [BMD Previous: na] [BMD % Change: na] RT Hip Neck: [BMD (g/cm2):0.890] [T-Score:-1.1] [Z-Score:0.5] RT Hip Total: [BMD (g/cm2):0.987] [T-score:-0.2] [Z-Score:1.1] [BMD Previous:na] [BMD % Change:na] World Health Organization criteria for BMD interpretation classify patients as Normal (T-score at or above -1.0), Osteopenic (T-score between -1.0 and -2.5) or Osteoporotic (T-score at or below -2.5). LIMITATIONS AND MODIFICATION: None. FRACTURE RISK (FRAX SCORE): The ten year probability of (%): Major Osteoporotic Fracture: [8.9] Hip Fracture: [0.9] IMPRESSION: 1. Osteopenia (Low bone mass). 2. Baseline examination. 3. See below National Osteoporosis Foundation guidelines on when to potentially initiate pharmacologic therapy. Based on the National Osteoporosis Foundation Guidelines, pharmacologic treatment should be initiated in any of the following, unless clinical conditions suggest otherwise: * Any patient with prior fragility fracture of the hip or vertebrae. A spine fracture indicates 5X risk for subsequent spine fracture and 2X risk for subsequent hip fracture. * Osteoporosis (T-score <-2.5). * Postmenopausal women and men age 50 and older with low bone mass/osteopenia (T-score between -1.0 and -2.5) by DXA and 10-year major osteoporotic fracture greater than 20% or a 10-year probability of hip fracture greater than 3%. These fracture risks are supplied above in the FRAX score, if applicable. * Clinician judgement and/or patient preferences may indicate treatment for people with 10-year fracture probabilities above or below these levels. Dictated by: Dictated on workstation # [id number]
--- NOTE | 2021-04-18 09:03 | Diagnostic Imaging Report ---
INDICATION: Routine screening. COMPARISON: 08/24/2013 and 09/12/2011. TECHNIQUE: 2D and 3D bilateral screening mammography was performed with CAD. FINDINGS: Scattered fibroglandular densities are identified bilaterally. The parenchymal pattern is stable. No spiculated mass or malignant appearing microcalcifications are seen. The axillae are unremarkable. IMPRESSION: No mammographic features suspicious for malignancy are identified. ACR BI-RADS Category 1: Negative. Result letter will be mailed to the patient. Note: At least 10% of breast cancer is not imaged by mammography. Dictated by: Dictated on workstation # [id number]
== END ==
LOC: RAD 13:38
PROVIDERS: ATTEND Pediatrics
DX: Z12.31 Encounter for screening mammogram for malignant neoplasm of breast (principal); M81.0 Age-related osteoporosis without current pathological fracture; M85.80 Other specified disorders of bone density and structure, unspecified site; Z78.0 Asymptomatic menopausal state
CPT/HCPCS: 77063; 77067; 77080

== ENCOUNTER 2021-10-30 04:03 | Emergency (ER) | payer MEDICARE, OTHER ==
[~2021-10-30] VITALS: Ht 154 cm; Wt 63.0 kg
--- NOTE | 2021-10-30 04:14 | ED Lower Extremity ---
General Chief Complaint: Lower Extremity Stated Complaint: FALL,LEG PAIN Source: patient, EMS History of Present Illness Date Seen by Provider: Oct 30, 2021 Time Seen by Provider: 04:05 Initial Comments PT ARRIVES VIA EMS FROM HOME C/O BILATERAL LEG CRAMPS WOKE UP AT 0100 WITH CRAMPING IN LEFT LEG--BEGAN IN LOWER LEG AND ANKLE, THEN MOVED UP TO THIGH, THEN STARTED IN ON HER RIGHT LEG WELL CRAMPING IS DIFFUSE IN BOTH LEGS AND WAS UNABLE TO STAND DID NOT FALL OR INJURE HERSELF, JUST LOWERED HERSELF TO THE FLOOR STATES SHE FREQUENTLY GETS LEG CRAMPS BUT NOT THIS BAD, SHE STATES SHE DRANK PICKLE JUICE, DRANK A CUP OF MILK AT TOOK A TYLENOL WITHOUT RELIEF. STATES NORMALLY PICKLE JUICE RELIEVES THE CRAMPS, BUT NOT TONIGHT NO PAIN OR CRAMPING NOW, LONG SHE IS LAYING STILL NO SWELLING IN LEGS/FEET NO CHEST PAIN NO SHORTNESS OF BREATH PT IS TYPE 1 DIABETIC DENIES NEUROPATHY STATES HER GLUCOMETER READ "HIGH" WHEN SHE WENT TO BED TONIGHT. ACCUCHECK WAS 228 FOR EMS PT STATES SHE HAS BEEN PRESCRIBED GABAPENTIN, BUT DOES NOT TAKE IT VERY OFTEN--STATES IT MAKES HER "FUZZY IN THE HEAD"--HAS NOT TAKEN ANY FOR AT LEAST A MONTH. PCP: DR. Florentino CARRASCO/[facility] [place] Allergies and Home Medications Allergies Coded Allergies: metformin (Verified Allergy, Intermediate, 11/25/18) insulin lispro (Verified Adverse Reaction, Severe, MAKES PTS LEGS SEVERLY WEAK, 11/26/18) MAKES PTS LEGS SEVERLY WEAK Patient Home Medication List Home Medication List Reviewed: Yes Cyclobenzaprine HCl (Cyclobenzaprine HCl) 5 Mg Tablet, 5-10 MG PO TID Prescribed by: CAMERON ANN on 10/30/21 0526 Insulin Detemir (Levemir Flextouch) 100 Unit/1 Ml Insuln.pen, 30 UNIT SQ BID Prescribed by: URVASHI HAYES on 12/02/19 1056 Linagliptin (Tradjenta) 5 Mg Tablet, 5 MG PO DAILY, (Reported) Entered as Reported by: ELIZABETH PARK on 12/01/19 0904 Lisinopril (Lisinopril) 20 Mg Tablet, 20 MG PO DAILY, (Reported) Entered as Reported by: ELIZABETH PARK on 12/01/19 0904 Nitrofurantoin Monohyd/M-Cryst (Macrobid 100 mg Capsule) 100 Mg Capsule, 1 TAB PO BID Prescribed by: CAMERON ANN on 10/30/21 0612 Ondansetron (Ondansetron Odt) 4 Mg Tab.rapdis, 4 MG PO Q4H PRN for NAUSEA/VOMITING-1ST LINE Prescribed by: URVASHI HAYES on 12/02/19 1056 Review of Systems Constitutional: no symptoms reported Respiratory: no symptoms reported Cardiovascular: no symptoms reported Gastrointestinal: no symptoms reported Genitourinary: no symptoms reported Musculoskeletal: see HPI, muscle cramps Skin: no symptoms reported Psychiatric/Neurological: No Symptoms Reported Past Ibxpctz-Srzkyp-Yitten Hx Patient Social History Tobacco Use?: No Substance use?: No Alcohol Use?: No Seasonal Allergies Seasonal Allergies: Yes Past Medical History Surgeries: Yes (HYST/OVARIES INTACT; LEFT ARM BENIGN TUMOR REMOVED. ) Gallbladder, Hysterectomy, Orthopedic Respiratory: No Cardiac: No Neurological: No Reproductive Disorders: No QA TECH History: Hysterectomy, Menopausal Genitourinary: Yes (CHRONIC RENAL INSUFFICIENCY) Gastrointestinal: No Musculoskeletal: Yes (LEG CRAMPS) Endocrine: Yes (TYPE 1 DIABETES; EPISODES OF DKA) Diabetes, Insulin dep HEENT: No Cancer: No Psychosocial: No Integumentary: No Blood Disorders: No Family Medical History Heart Disease, Cancer, CVA, Diabetes Physical Exam Vital Signs Vital Signs - First Documented 10/30/21 04:17 Temp 36.7 Pulse 83 Resp 16 B/P (MAP) 152/82 (105) Pulse Ox 98 O2 Delivery Room Air Capillary Refill : Height, Weight, BMI Height: 5'10.00" Weight: 130lbs. 0.0oz. 58.695455gx; 24.00 BMI Method:Stated General Appearance: WD/WN, no apparent distress, other (LAUGHING ON ARRIVAL, DOES NOT APPEAR TO BE IN ANY DISCOMFORT OR DISTRESS) Neck: normal inspection Cardiovascular: normal peripheral pulses, regular rate, rhythm, no edema, no JVD, no murmur Respiratory: normal breath sounds, no respiratory distress, no accessory muscle use Gastrointestinal: soft Back: no CVA tenderness Hips: bilateral hip non-tender, bilateral hip normal inspection, bilateral hip normal range of motion, bilateral hip no evidence of injury Legs: bilateral leg non-tender, bilateral leg normal inspection, bilateral leg normal range of motion, bilateral leg no evidence of injury Knees: bilateral knee non-tender, bilateral knee normal inspection, bilateral knee normal range of motion, bilateral knee no evidence of injury Ankles: bilateral ankle non-tender, bilateral ankle normal inspection, bilateral ankle normal range of motion, bilateral ankle no evidence of injury Feet: bilateral foot non-tender, bilateral foot normal inspection, bilateral foot normal range of motion, bilateral foot no evidence of injury Neurologic/Tendon: normal sensation, normal motor functions, normal tendon functions 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, no motor/sensory deficits, alert, normal mood/affect, oriented x 3 Skin: normal color, warm/dry Progress/Results/Core Measures Results/Orders Lab Results Laboratory Tests Test 10/30/21 04:08 10/30/21 05:47 Range/Units White Blood Count 11.0 4.3-11.0 10^3/uL Red Blood Count 4.18 3.80-5.11 10^6/uL Hemoglobin 12.7 11.5-16.0 g/dL Hematocrit 37 35-52 % Mean Corpuscular Volume 88 80-99 fL Mean Corpuscular Hemoglobin 30 25-34 pg Mean Corpuscular Hemoglobin Concent 35 32-36 g/dL Red Cell Distribution Width 11.7 10.0-14.5 % Platelet Count 387 130-400 10^3/uL Mean Platelet Volume 10.1 9.0-12.2 fL Immature Granulocyte % (Auto) 0 % Neutrophils (%) (Auto) 71 42-75 % Lymphocytes (%) (Auto) 14 12-44 % Monocytes (%) (Auto) 10 0-12 % Eosinophils (%) (Auto) 5 0-10 % Basophils (%) (Auto) 1 0-10 % Neutrophils # (Auto) 7.8 1.8-7.8 10^3/uL Lymphocytes # (Auto) 1.5 1.0-4.0 10^3/uL Monocytes # (Auto) 1.1 H 0.0-1.0 10^3/uL Eosinophils # (Auto) 0.5 H 0.0-0.3 10^3/uL Basophils # (Auto) 0.1 0.0-0.1 10^3/uL Immature Granulocyte # (Auto) 0.0 0.0-0.1 10^3/uL Sodium Level 133 L 135-145 MMOL/L Potassium Level 4.5 3.6-5.0 MMOL/L Chloride Level 99 98-107 MMOL/L Carbon Dioxide Level 21 21-32 MMOL/L Anion Gap 13 5-14 MMOL/L Blood Urea Nitrogen 30 H 7-18 MG/DL Creatinine 1.61 H 0.60-1.30 MG/DL Estimat Glomerular Filtration Rate 32 BUN/Creatinine Ratio 19 Glucose Level 218 H 70-105 MG/DL Calcium Level 9.7 8.5-10.1 MG/DL Corrected Calcium 9.8 8.5-10.1 MG/DL Magnesium Level 2.5 H 1.6-2.4 MG/DL Total Bilirubin 0.3 0.1-1.0 MG/DL Aspartate Amino Transf (AST/SGOT) 15 5-34 U/L Alanine Aminotransferase (ALT/SGPT) 19 0-55 U/L Alkaline Phosphatase 122 40-136 U/L Total Creatine Kinase 81 29-168 U/L Creatine Kinase MB 1.9 <6.6 NG/ML Myoglobin 265.1 H 10.0-92.0 NG/ML Total Protein 6.9 6.4-8.2 GM/DL Albumin 3.9 3.2-4.5 GM/DL Urine Color YELLOW Urine Clarity CLOUDY Urine pH 6.0 5-9 Urine Specific [place] 1.020 1.016-1.022 Urine Protein TRACE H NEGATIVE Urine Glucose (UA) 3+ H NEGATIVE Urine Ketones NEGATIVE NEGATIVE Urine Nitrite NEGATIVE NEGATIVE Urine Bilirubin NEGATIVE NEGATIVE Urine Urobilinogen 0.2 < = 1.0 MG/DL Urine Leukocyte Esterase 2+ H NEGATIVE Urine RBC (Auto) 1+ H NEGATIVE Urine RBC 5-10 H /HPF Urine WBC 10-25 H /HPF Urine Squamous Epithelial Cells 2-5 /HPF Urine Crystals PRESENT H /LPF Urine Amorphous Sediment FEW NED URATES H /LPF Urine Bacteria FEW H /HPF Urine Casts NONE /LPF Urine Mucus NEGATIVE /LPF Urine Culture Indicated YES My Orders Orders - CAMERON ANN DO Ed Iv/Invasive Line Start (10/30/21 04:08) Cbc With Automated Diff (10/30/21 04:08) Comprehensive Metabolic Panel (10/30/21 04:08) Creatine Kinase (10/30/21 04:08) Creatine Kinase Mb (10/30/21 04:08) Magnesium (10/30/21 04:08) Ua Culture If Indicated (10/30/21 04:08) Myoglobin Serum (10/30/21 04:08) Orphenadrine Inj (Ed Only) (Norflex Inje (10/30/21 05:00) Fentanyl Inj (Sublimaze Injection) (10/30/21 05:00) Ed Iv/Invasive Line Start (10/30/21 04:56) Ns Iv 1000 Ml (Sodium Chloride 0.9%) (10/30/21 05:00) Urine Culture (10/30/21 05:47) Medications Given in ED Current Medications Medications Dose Ordered Sig/Rosy Route Start Time Stop Time Status Last Admin Dose Admin Fentanyl Citrate 50 mcg ONCE ONCE IVP 10/30/21 05:00 10/30/21 05:01 DC 10/30/21 05:11 50 MCG Orphenadrine Citrate 60 mg ONCE ONCE IV 10/30/21 05:00 10/30/21 05:01 DC 10/30/21 05:10 60 MG Vital Signs/I&O 10/30/21 10/30/21 04:17 04:17 Temp 36.7 Pulse 83 80 Resp 16 16 B/P (MAP) 152/82 (105) 152/82 Pulse Ox 98 98 O2 Delivery Room Air Room Air Progress Progress Note : Progress Note UNEVENTFUL ER STAY GIVEN NORFLEX AND FENTANYL PT ABLE TO GET UP TO BEDSIDE COMMODE AND BACK TO ER CART ON HER OWN, PT STATES NO PAIN OR CRAMPING Departure Impression Primary Impression: Bilateral leg cramps Additional Impressions: Nocturnal leg cramps IDDM (insulin dependent diabetes mellitus) Hyponatremia Renal insufficiency UTI (urinary tract infection) Disposition: 01 HOME, SELF-CARE Condition: Improved Departure-Patient Inst. Decision time for Depature: 05:25 Referrals: [facility] (PCP) Primary Care Physician SHIRA YANG APRN (Family) Primary Care Physician Patient Instructions: Controlling Blood Sugar in Children With Diabetes, Hyponatremia (DC), Nocturnal (Nighttime) Leg Cramps (DC), Renal Function Panel, Urinary Tract Infection, Adult (DC) Add. Discharge Instructions: MOIST HEAT TO LEGS AT 20 MINUTE INTERVALS TAKE ALL YOUR REGULAR MEDICATIONS PRESCRIBED TYLENOL NEEDED FOR PAIN --1 GRAM 4 TIMES A DAY FOLLOW UP WITH YOUR DR THIS WEEK FOR FURTHER CARE All discharge instructions reviewed with patient and/or family. Voiced understanding. Scripts Nitrofurantoin Monohyd/M-Cryst (Macrobid 100 mg Capsule) 100 Mg Capsule 1 TAB PO BID, #20 CAP Prov: CAMERON ANN DO 10/30/21 Cyclobenzaprine HCl (Cyclobenzaprine HCl) 5 Mg Tablet 5-10 MG PO TID for Muscle Spasms, #10 TAB Prov: CAMERON ANN DO 10/30/21 CAMERON ANN DO Oct 30, 2021 04:14
[2021-10-30 04:17] LABS: BASOPHILS # (AUTO) 0.1 10^3/uL (0.0-0.1); BASOPHILS % (AUTO) 1 % (0-10); EOSINOPHILS # (AUTO) 0.5 10^3/uL (0.0-0.3); EOSINOPHILS % (AUTO) 5 % (0-10); HEMATOCRIT 37 % (35-52); HEMOGLOBIN 12.7 g/dL (11.5-16.0); LYMPHOCYTES # (AUTO) 1.5 10^3/uL (1.0-4.0); LYMPHOCYTES % (AUTO) 14 % (12-44); MEAN CORPUSCULAR HEMOGLOBIN 30 pg (25-34); MEAN CORPUSCULAR HGB CONC 35 g/dL (32-36); MEAN CORPUSCULAR VOLUME 88 fL (80-99); MEAN PLATELET VOLUME 10.1 fL (9.0-12.2); MONOCYTES # (AUTO) 1.1 10^3/uL (0.0-1.0); MONOCYTES % (AUTO) 10 % (0-12); NEUTROPHILS # (AUTO) 7.8 10^3/uL (1.8-7.8); NEUTROPHILS % (AUTO) 71 % (42-75); PLATELET COUNT 387 10^3/uL (130-400)
[2021-10-30 04:34] LABS: ALBUMIN 3.9 GM/DL (3.2-4.5); POTASSIUM 4.5 MMOL/L (3.6-5.0)
[2021-10-30 04:35] LABS: CALCIUM 9.7 MG/DL (8.5-10.1)
[2021-10-30 04:37] LABS: TOTAL PROTEIN 6.9 GM/DL (6.4-8.2)
[2021-10-30 04:38] LABS: BILIRUBIN,TOTAL 0.3 MG/DL (0.1-1.0)
[2021-10-30 04:40] LABS: CREATININE SERUM 1.61 MG/DL (0.60-1.30)
[2021-10-30 04:43] LABS: MAGNESIUM 2.5 MG/DL (1.6-2.4)
[2021-10-30 04:54] LABS: CREATINE KINASE MB 1.9 NG/ML (<6.6)
[2021-10-30] MEDS ORDERED: fentaNYL INJ 100 MCG/2 ML AMP IVP ONE (05:00)
[2021-10-30] MEDS ORDERED: NS IV 1000 ML 1,000 ML IV SCH (05:00)
[2021-10-30] MEDS ORDERED: ORPHENADRINE 60 MG/2 ML (NORFLEX) AMP (ED ONLY) IV ONE (05:00)
[2021-10-30] MEDS ORDERED: CYCL5TAB PO (05:26)
[2021-10-30 05:56] LABS: BILIRUBIN,URINE NEGATIVE (NEGATIVE); CLARITY,URINE CLOUDY; COLOR,URINE YELLOW; GLUCOSE, URINE (UA) 3+ (NEGATIVE); KETONES,URINE NEGATIVE (NEGATIVE); LEUKOCYTE ESTERASE ,URINE 2+ (NEGATIVE); NITRITE,URINE NEGATIVE (NEGATIVE); PROTEIN,URINE TRACE (NEGATIVE)
[2021-10-30 06:07] LABS: AMORPHOUS SEDIMENT,UR FEW AMOR URATES /LPF; BACTERIA,URINE FEW /HPF
[2021-10-30] MEDS ORDERED: NITR-65 PO (06:12)
[2021-10-30 06:43] VITALS: BP 137/78
== END 2021-10-30 06:44 | disposition home or self-care (01) ==
LOC: ER 04:03
DX: R25.2 Cramp and spasm (principal); E10.9 Type 1 diabetes mellitus without complications; E87.1 Hypo-osmolality and hyponatremia; N28.9 Disorder of kidney and ureter, unspecified; N39.0 Urinary tract infection, site not specified
CPT/HCPCS: 36415; 80053; 81000; 82550; 82553; 83735; 83874; 85025; 87088

== ENCOUNTER 2022-09-13 12:51 | Emergency (ER) | payer MEDICARE, OTHER ==
[~2022-09-13] VITALS: Ht 157.4 cm; Wt 63.0 kg
[~2022-09-13 12:51] MED LIST changes: +CYCL5TAB PO; +NITR-65 PO
--- NOTE | 2022-09-13 13:25 | ED General ---
General Chief Complaint: Respiratory Problems Stated Complaint: SOA - WEAK Nursing Triage Note: STATES SHE WAS HAVING EPISODES OF FATIGUE WHEN GETTING READY THIS AM WHERE SHE HAD TO SIT DOWN TO CATCH HER BREATH. Source of Information: Patient Exam Limitations: No Limitations History of Present Illness Date Seen by Provider: Sep 13, 2022 Time Seen by Provider: 13:05 Initial Comments Patient is a 67-year-old female who presents to the emergency department today with a chief complaint of generalized fatigue and malaise over the last couple of days worse this morning. She felt a little short of breath and had a couple of episodes of nausea and vomiting this morning. She states she gets this about twice a year where she is dehydrated and needs to come to the emergency room for IV fluids. She is an insulin-dependent diabetic and has been 1 for 48 years. She denies any fevers or chills. No headache, upper respiratory congestion. No cough. No diarrhea or urinary complaints. No wounds, lesions or rashes. She has not taken anything for the symptoms. She feels a little lightheaded and dizzy with getting up and walking and moving around. She states her appetite has been poor for the last couple of days. No abdominal pain All other review of systems reviewed and negative except as stated. Timing/Duration: 4-6 Hours Severity: Moderate Associated Systoms: Malaise, Nausea/Vomiting, Weakness, Other (dizzy with standing) Allergies and Home Medications Allergies Coded Allergies: metformin (Verified Allergy, Intermediate, 11/25/18) insulin lispro (Verified Adverse Reaction, Severe, MAKES PTS LEGS SEVERLY WEAK, 11/26/18) MAKES PTS LEGS SEVERLY WEAK Patient Home Medication List Home Medication List Reviewed: Yes Cyclobenzaprine HCl (Cyclobenzaprine HCl) 5 Mg Tablet, 5-10 MG PO TID Prescribed by: CAMERON ANN on 10/30/21 0526 Insulin Detemir (Levemir Flextouch) 100 Unit/1 Ml Insuln.pen, 30 UNIT SQ BID Prescribed by: URVASHI HAYES on 12/02/19 1056 Linagliptin (Tradjenta) 5 Mg Tablet, 5 MG PO DAILY, (Reported) Entered as Reported by: ELIZABETH PARK on 12/01/19 0904 Lisinopril (Lisinopril) 20 Mg Tablet, 20 MG PO DAILY, (Reported) Entered as Reported by: ELIZABETH PARK on 12/01/19 0904 Nitrofurantoin Monohyd/M-Cryst (Macrobid 100 mg Capsule) 100 Mg Capsule, 1 TAB PO BID Prescribed by: CAMERON ANN on 10/30/21 0612 Ondansetron (Ondansetron Odt) 4 Mg Tab.rapdis, 4 MG PO Q4H PRN for NAUSEA/VOMITING-1ST LINE Prescribed by: URVASHI HAYES on 12/02/19 1056 Ondansetron (Ondansetron Odt) 4 Mg Tab.rapdis, 4 MG SL Q8H PRN for NAUSEA/VOMITING Prescribed by: ROHAN LECHUGA on 09/13/22 1455 Review of Systems Review of Systems Constitutional: see HPI EENTM: no symptoms reported Respiratory: no symptoms reported Cardiovascular: no symptoms reported Gastrointestinal: abdominal pain, nausea, vomiting Genitourinary: no symptoms reported Musculoskeletal: no symptoms reported Skin: no symptoms reported Psychiatric/Neurological: Other (nicole headed) Past Omeatlx-Vdfpfz-Rqbhvd Hx Patient Social History Tobacco Use?: No Use of E-Cig and/or Vaping dev: No Substance use?: No Alcohol Use?: No Pt feels they are or have been: No Immunizations Up To Date Influenza Vaccine Up-to-Date: Yes; Up-to-Date First/Initial COVID19 Vaccinat: NONE Seasonal Allergies Seasonal Allergies: Yes Past Medical History Surgery/Hospitalization HX: diabetes, neuropathy Surgeries: Yes (HYST/OVARIES INTACT; LEFT ARM BENIGN TUMOR REMOVED. 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 0.0oz. [id number]; 25.00 BMI Method:Stated General Appearance: No Apparent Distress, WD/WN Eyes: Bilateral Eye Normal Inspection, Bilateral Eye PERRL, Bilateral Eye EOMI HEENT: PERRL/EOMI Neck: Normal Inspection Respiratory: Lungs Clear, Normal Breath Sounds, No Accessory Muscle Use, No Respiratory Distress Cardiovascular: Regular Rate, Rhythm, Normal Peripheral Pulses Gastrointestinal: Normal Bowel Sounds, Non Tender, Soft Extremity: Normal Capillary Refill, Normal Inspection, Normal Range of Motion Neurologic/Psychiatric: Alert, Oriented x3, No Motor/Sensory Deficits, Normal Mood/Affect Skin: Normal Color, Warm/Dry Progress/Results/Core Measures Suspected Sepsis SIRS Temperature: Pulse: 104 Respiratory Rate: 14 Laboratory Tests 09/13/22 13:45: White Blood Count 8.9 Blood Pressure 137 /82 Mean: 100 Laboratory Tests 09/13/22 13:45: Creatinine 1.41H, Platelet Count 400, Total Bilirubin 0.5 Results/Orders Lab Results Laboratory Tests Test 09/13/22 13:02 09/13/22 13:37 09/13/22 13:45 Range/Units Glucometer 317 H 70-110 MG/DL Urine Color YELLOW Urine Clarity CLEAR Urine pH 5.5 5-9 Urine Specific [place] 1.025 H 1.016-1.022 Urine Protein NEGATIVE NEGATIVE Urine Glucose (UA) 3+ H NEGATIVE Urine Ketones TRACE H NEGATIVE Urine Nitrite NEGATIVE NEGATIVE Urine Bilirubin NEGATIVE NEGATIVE Urine Urobilinogen 0.2 < = 1.0 MG/DL Urine Leukocyte Esterase TRACE H NEGATIVE Urine RBC (Auto) NEGATIVE NEGATIVE Urine RBC 2-5 H /HPF Urine WBC 5-10 H /HPF Urine Squamous Epithelial Cells 2-5 /HPF Urine Crystals NONE /LPF Urine Bacteria FEW H /HPF Urine Casts PRESENT /LPF Urine Hyaline Casts 2-5 H /LPF Urine Mucus NEGATIVE /LPF Urine Culture Indicated YES White Blood Count 8.9 4.3-11.0 10^3/uL Red Blood Count 3.98 3.80-5.11 10^6/uL Hemoglobin 11.7 11.5-16.0 g/dL Hematocrit 35 35-52 % Mean Corpuscular Volume 87 80-99 fL Mean Corpuscular Hemoglobin 29 25-34 pg Mean Corpuscular Hemoglobin Concent 34 32-36 g/dL Red Cell Distribution Width 13.6 10.0-14.5 % Platelet Count 400 130-400 10^3/uL Mean Platelet Volume 9.7 9.0-12.2 fL Immature Granulocyte % (Auto) 0 % Neutrophils (%) (Auto) 70 42-75 % Lymphocytes (%) (Auto) 20 12-44 % Monocytes (%) (Auto) 7 0-12 % Eosinophils (%) (Auto) 1 0-10 % Basophils (%) (Auto) 1 0-10 % Neutrophils # (Auto) 6.3 1.8-7.8 X 10^3 Lymphocytes # (Auto) 1.8 1.0-4.0 X 10^3 Monocytes # (Auto) 0.7 0.0-1.0 X 10^3 Eosinophils # (Auto) 0.1 0.0-0.3 10^3/uL Basophils # (Auto) 0.1 0.0-0.1 10^3/uL Immature Granulocyte # (Auto) 0.0 0.0-0.1 10^3/uL Sodium Level 130 L 135-145 MMOL/L Potassium Level 4.3 3.6-5.0 MMOL/L Chloride Level 98 98-107 MMOL/L Carbon Dioxide Level 25 21-32 MMOL/L Anion Gap 7 5-14 MMOL/L Blood Urea Nitrogen 16 7-18 MG/DL Creatinine 1.41 H 0.60-1.30 MG/DL Estimat Glomerular Filtration Rate 41 BUN/Creatinine Ratio 11 Glucose Level 290 H 70-105 MG/DL Calcium Level 9.5 8.5-10.1 MG/DL Corrected Calcium 9.4 8.5-10.1 MG/DL Total Bilirubin 0.5 0.1-1.0 MG/DL Aspartate Amino Transf (AST/SGOT) 22 5-34 U/L Alanine Aminotransferase (ALT/SGPT) 20 0-55 U/L Alkaline Phosphatase 127 40-136 U/L Total Protein 7.1 6.4-8.2 GM/DL Albumin 4.1 3.2-4.5 GM/DL Beta-Hydroxybutyrate (Chem panel) 0.15 0.00-0.27 MMOL/L My Orders Orders - ROHAN LECHUGA MD Ed Iv/Invasive Line Start (09/13/22 13:23) Cbc With Automated Diff (09/13/22 13:23) Comprehensive Metabolic Panel (09/13/22 13:23) Ua Culture If Indicated (09/13/22 13:23) Beta Hydroxybutyrate (09/13/22 13:23) Ns Iv 1000 Ml (Sodium Chloride 0.9%) (09/13/22 13:30) Urine Culture (09/13/22 13:37) Vital Signs/I&O 09/13/22 09/13/22 12:57 12:57 Temp 35.2 Pulse 104 Resp 14 B/P (MAP) 137/82 (100) Pulse Ox 98 O2 Delivery Room Air Room Air Capillary Refill : Less Than 3 Seconds Blood Pressure Mean: 100 Progress Note : Time: 14:52 Progress Note Patient reevaluated after fluids and labs. She states that she feels much better. She is not nauseated. She thinks that she is going to be able to get up and get home without any difficulties. She did request some nausea medicine be sent to her pharmacy. I talked to her about her slightly low sodium as well as her renal function. Recommendations to follow-up with her primary care and her visitor information assistant. She looks good, all questions were sought and answered. No clinical or objective findings to warrant further studies from the emergency department. The patient is not in DKA. She does have some bacteria in her urine with some white cells I advised her that since she is asymptomatic we will culture the urine and if it should grow any bacteria that are concerning we will notify her and start her on some antibiotics. She is comfortable with this plan of care and stable for discharge. Departure Impression Primary Impression: Nausea & vomiting Qualified Codes: R11.2 - Nausea with vomiting, unspecified Additional Impression: Mild dehydration Disposition: 01 HOME, SELF-CARE Condition: Improved Departure-Patient Inst. Decision time for Depature: 14:54 Referrals: DEJAN CARRASCO MD (PCP/Family) Primary Care Physician Patient Instructions: Nausea and Vomiting, Adult ED Add. Discharge Instructions: Follow a clear liquid diet for the rest of the day. You can slowly advance your diet as tolerated later this evening and into tomorrow. I have sent a prescription for some Zofran, nausea medication to [facility] on [address]. 4 mg every 8 hours as needed for upset stomach. Watch her blood sugars closely. If you have any worsening symptoms, new, concerning or emergent complaints please come back to the emergency department for reevaluation. I have sent a copy of your labs and chart to your primary care physician. Scripts Ondansetron (Ondansetron Odt) 4 Mg Tab.rapdis 4 MG SL Q8H PRN for NAUSEA/VOMITING, #20 TAB Prov: ROHAN LECHUGA MD 09/13/22 Copy Copies To 1: DEJAN CARRASCO MD, KATHRYN M MD Sep 13, 2022 13:25
[2022-09-13] MEDS ORDERED: NS IV 1000 ML 1,000 ML IV SCH (13:30)
[2022-09-13 13:45] LABS: CLARITY,URINE CLEAR; COLOR,URINE YELLOW; GLUCOSE, URINE (UA) 3+ (NEGATIVE); KETONES,URINE TRACE (NEGATIVE); LEUKOCYTE ESTERASE ,URINE TRACE (NEGATIVE); NITRITE,URINE NEGATIVE (NEGATIVE); PH,URINE 5.5 (5-9); PROTEIN,URINE NEGATIVE (NEGATIVE)
[2022-09-13 14:06] LABS: BASOPHILS # (AUTO) 0.1 10^3/uL (0.0-0.1); BASOPHILS % (AUTO) 1 % (0-10); EOSINOPHILS # (AUTO) 0.1 10^3/uL (0.0-0.3); EOSINOPHILS % (AUTO) 1 % (0-10); HEMATOCRIT 35 % (35-52); HEMOGLOBIN 11.7 g/dL (11.5-16.0); LYMPHOCYTES # (AUTO) 1.8 X 10^3 (1.0-4.0); LYMPHOCYTES % (AUTO) 20 % (12-44); MEAN CORPUSCULAR HEMOGLOBIN 29 pg (25-34); MEAN CORPUSCULAR HGB CONC 34 g/dL (32-36); MEAN CORPUSCULAR VOLUME 87 fL (80-99); MEAN PLATELET VOLUME 9.7 fL (9.0-12.2); MONOCYTES # (AUTO) 0.7 X 10^3 (0.0-1.0); MONOCYTES % (AUTO) 7 % (0-12); NEUTROPHILS # (AUTO) 6.3 X 10^3 (1.8-7.8); NEUTROPHILS % (AUTO) 70 % (42-75); PLATELET COUNT 400 10^3/uL (130-400); WHITE BLOOD COUNT 8.9 10^3/uL (4.3-11.0)
[2022-09-13 14:08] LABS: BACTERIA,URINE FEW /HPF; BILIRUBIN,URINE NEGATIVE (NEGATIVE)
[2022-09-13 14:10] LABS: ALBUMIN 4.1 GM/DL (3.2-4.5); POTASSIUM 4.3 MMOL/L (3.6-5.0)
[2022-09-13 14:11] LABS: CALCIUM 9.5 MG/DL (8.5-10.1)
[2022-09-13 14:12] LABS: TOTAL PROTEIN 7.1 GM/DL (6.4-8.2)
[2022-09-13 14:14] LABS: BILIRUBIN,TOTAL 0.5 MG/DL (0.1-1.0)
[2022-09-13 14:16] LABS: CREATININE SERUM 1.41 MG/DL (0.60-1.30)
[2022-09-13] MEDS ORDERED: ONDA4TAB11 SL (14:55)
[2022-09-13 15:05] VITALS: BP 125/69
== END 2022-09-13 15:05 | disposition home or self-care (01) ==
LOC: EDUNIT# 12:51 → ER 12:52
DX: E86.0 Dehydration (principal); R11.2 Nausea with vomiting, unspecified; E10.10 Type 1 diabetes mellitus with ketoacidosis without coma; E10.40 Type 1 diabetes mellitus with diabetic neuropathy, unspecified; Z28.310 Unvaccinated for COVID-19
CPT/HCPCS: 36415; 80053; 81000; 82010; 82947; 85025; 87088; 96360

== ENCOUNTER 2022-12-22 12:29 | Emergency (ER) | payer MEDICARE, OTHER ==
[~2022-12-22] VITALS: Ht 157.4 cm; Wt 65.7 kg
[~2022-12-22 12:29] MED LIST changes: +ONDA4TAB11 SL
[2022-12-22] MEDS ORDERED: NS IV 1000 ML 1,000 ML IV SCH ×2 (13:00→15:00)
--- NOTE | 2022-12-22 13:06 | ED General ---
General Chief Complaint: General Problems/Pain Stated Complaint: DEHYDRATED,OUT OF BREATH, WEAK Source of Information: Patient History of Present Illness Date Seen by Provider: Dec 22, 2022 Time Seen by Provider: 12:52 Initial Comments PT ARRIVES VIA POV FROM HOME PT STATES SHE STARTED FEELING ILL YESTERDAY STATES "I'M DEHYDRATED" --PT HAS BEEN EATING AND DRINKING NORMALLY, VOIDING FREQUENTLY SHE C/O SHORTNESS OF BREATH WITH EXERTION. C/O GENERALIZED WEAKNESS PT IS INSULIN DEPENDENT DIABETIC, BLOOD SUGARS HAVE BEEN "HIGH" THE LAST FEW DAYS--BLOOD SUGAR WAS 287 THIS AM. PT HAS A CGM ( CONTINUOUS GLUCOSE MONITOR) BUT DOES NOT HAVE AN INSULIN PUMP SHE HAS TAKEN ALL OF HER REGULAR MEDICATIONS THIS MORNING. SHE HAS NOT GIVEN HERSELF ANY ADDITIONAL INSULIN. NO CHEST PAIN NO SWELLING IN LEGS/FEET OR PAIN IN CALVES NO FEVER/SWEATS/CHILLS NO COUGH OR URI SYMPTOMS OR SORE THROAT NO DIZZINESS OR PALPITATIONS NO GI SYMPTOMS NO HEADACHE NO BODY ACHES NO KNOWN SICK CONTACTS PT HAS NOT HAD COVID VACCINE, SHE HAS HAD FLU VACCINE FOR THIS SEASON. PT DOES NOT SMOKE, DRINK OR USE DRUGS IN ADDITION TO DIABETES, SHE HAS HTN SHE DENIES ANY HISTORY OF RESPIRATORY PROBLEMS OR HEART PROBLEMS PCP: DR. DEJAN CARRASCO AT [facility]--HAS NOT BEEN THERE IN A LONG TIME Allergies and Home Medications Allergies Coded Allergies: metformin (Verified Allergy, Intermediate, 11/25/18) insulin lispro (Verified Adverse Reaction, Severe, MAKES PTS LEGS SEVERLY WEAK, 11/26/18) MAKES PTS LEGS SEVERLY WEAK Patient Home Medication List Home Medication List Reviewed: Yes Cefdinir (Cefdinir) 300 Mg Capsule, 300 MG PO BID Prescribed by: CAMERON ANN on 12/22/22 1457 Cyclobenzaprine HCl (Cyclobenzaprine HCl) 5 Mg Tablet, 5-10 MG PO TID Prescribed by: CAMERON ANN on 10/30/21 0526 Insulin Detemir (Levemir Flextouch) 100 Unit/1 Ml Insuln.pen, 30 UNIT SQ BID Prescribed by: URVASHI HAYES on 12/02/19 1056 Linagliptin (Tradjenta) 5 Mg Tablet, 5 MG PO DAILY, (Reported) Entered as Reported by: ELIZABETH PARK on 12/01/19 0904 Lisinopril (Lisinopril) 20 Mg Tablet, 20 MG PO DAILY, (Reported) Entered as Reported by: ELIZABETH PARK on 12/01/19 0904 Nitrofurantoin Monohyd/M-Cryst (Macrobid 100 mg Capsule) 100 Mg Capsule, 1 TAB PO BID Prescribed by: CAMERON ANN on 10/30/21 0612 Ondansetron (Ondansetron Odt) 4 Mg Tab.rapdis, 4 MG PO Q4H PRN for NAUSEA/VOMITING-1ST LINE Prescribed by: URVASHI HAYES on 12/02/19 1056 Ondansetron (Ondansetron Odt) 4 Mg Tab.rapdis, 4 MG SL Q8H PRN for NAUSEA/VOMITING Prescribed by: ROHAN LECHUGA on 09/13/22 1455 Review of Systems Review of Systems Constitutional: see HPI; No chills, No diaphoresis, No dizziness, No fever; malaise, weakness EENTM: no symptoms reported Respiratory: see HPI; No cough; dyspnea on exertion, short of breath; No wheezing Cardiovascular: no symptoms reported; No chest pain, No edema, No palpitations, No syncope Gastrointestinal: no symptoms reported; No abdominal pain, No diarrhea, No loss of appetite, No nausea, No vomiting Genitourinary: see HPI; No dysuria; frequency Musculoskeletal: no symptoms reported Skin: no symptoms reported Psychiatric/Neurological: No Symptoms Reported Hematologic/Lymphatic: No Symptoms Reported Immunological/Allergic: no symptoms reported Past Dhqsfud-Wileqe-Hjccvg Hx Patient Social History Tobacco Use?: No Smoking Status: Never a Smoker Smokeless Tobacco Frequency: Never a User Use of E-Cig and/or Vaping dev: No Use of E-Cig and/or Vaping Basilio: Never a User Substance use?: No Alcohol Use?: No Pt feels they are or have been: No Immunizations Up To Date Influenza Vaccine Up-to-Date: Yes; Up-to-Date First/Initial COVID19 Vaccinat: NONE Second COVID19 Vaccination Patricio: NONE Third COVID19 Vaccination Date: NONE Seasonal Allergies Seasonal Allergies: Yes Past Medical History Surgery/Hospitalization HX: diabetes, neuropathy, HTN PARTIAL HYST, ZU[place]KA, TUMOR REMOVAL ON ARM CARDIAC CATH [address] ESPITIA--NORMAL. Surgeries: Yes (HYST/OVARIES INTACT; LEFT ARM BENIGN TUMOR REMOVED. 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 0.0oz. 58.593333te; 25.00 BMI Method:Stated General Appearance: No Apparent Distress, WD/WN, Other (DOES NOT APPEAR ILL OR TO BE IN ANY DISCOMFORT OR DISTRESS) HEENT: PERRL/EOMI, Normal ENT Inspection, Moist Mucous Membranes Neck: Normal Inspection Respiratory: Normal Breath Sounds, No Accessory Muscle Use, No Respiratory Distress Cardiovascular: Regular Rate, Rhythm, No JVD, No Murmur, Normal Peripheral Pulses Gastrointestinal: Normal Bowel Sounds, Non Tender, Soft Back: Normal Inspection Extremity: Normal Capillary Refill, Normal Inspection Neurologic/Psychiatric: Alert, Oriented x3, No Motor/Sensory Deficits, bull ladle tender II- XII Norm as Tested Skin: Normal Color, Warm/Dry Focused Exam Lactate Level 12/22/22 13:20: Lactic Acid Level 1.05 Lactic Acid Level Laboratory Tests Test 12/22/22 13:20 Lactic Acid Level 1.05 MMOL/L (0.50-2.00) Progress/Results/Core Measures Suspected Sepsis SIRS Temperature: Pulse: Respiratory Rate: Laboratory Tests 12/22/22 13:20: White Blood Count 8.2 Blood Pressure / Mean: 12/22/22 13:20: Lactic Acid Level 1.05 Laboratory Tests 12/22/22 13:20: Creatinine 1.27, INR Comment 0.9, Platelet Count 431H, Total Bilirubin 0.4 Results/Orders Lab Results Laboratory Tests Test 12/22/22 13:12 12/22/22 13:13 12/22/22 13:20 12/22/22 14:20 Range/Units Glucometer 248 H 70-110 MG/DL Influenza Type A (RT-PCR) Not Detected Not Detecte Influenza Type B (RT-PCR) Not Detected Not Detecte SARS-CoV-2 RNA (RT-PCR) Not Detected Not Detecte White Blood Count 8.2 4.3-11.0 10^3/uL Red Blood Count 3.76 L 3.80-5.11 10^6/uL Hemoglobin 10.8 L 11.5-16.0 g/dL Hematocrit 32 L 35-52 % Mean Corpuscular Volume 84 80-99 fL Mean Corpuscular Hemoglobin 29 25-34 pg Mean Corpuscular Hemoglobin Concent 34 32-36 g/dL Red Cell Distribution Width 13.0 10.0-14.5 % Platelet Count 431 H 130-400 10^3/uL Mean Platelet Volume 10.0 9.0-12.2 fL Immature Granulocyte % (Auto) 0 % Neutrophils (%) (Auto) 66 42-75 % Lymphocytes (%) (Auto) 21 12-44 % Monocytes (%) (Auto) 9 0-12 % Eosinophils (%) (Auto) 3 0-10 % Basophils (%) (Auto) 1 0-10 % Neutrophils # (Auto) 5.4 1.8-7.8 10^3/uL Lymphocytes # (Auto) 1.7 1.0-4.0 10^3/uL Monocytes # (Auto) 0.7 0.0-1.0 10^3/uL Eosinophils # (Auto) 0.2 0.0-0.3 10^3/uL Basophils # (Auto) 0.1 0.0-0.1 10^3/uL Immature Granulocyte # (Auto) 0.0 0.0-0.1 10^3/uL Erythrocyte Sedimentation Rate 17 0-30 MM/HR Prothrombin Time 13.0 12.2-14.7 SEC INR Comment 0.9 0.8-1.4 Activated Partial Thromboplast Time 25 24-35 SEC D-Dimer <= 0.27 0.00-0.49 UG/ML Sodium Level 131 L 135-145 MMOL/L Potassium Level 4.2 3.6-5.0 MMOL/L Chloride Level 99 98-107 MMOL/L Carbon Dioxide Level 19 L 21-32 MMOL/L Anion Gap 13 5-14 MMOL/L Blood Urea Nitrogen 28 H 7-18 MG/DL Creatinine 1.27 0.60-1.30 MG/DL Estimat Glomerular Filtration Rate 46 BUN/Creatinine Ratio 22 Glucose Level 288 H 70-105 MG/DL Lactic Acid Level 1.05 0.50-2.00 MMOL/L Calcium Level 9.3 8.5-10.1 MG/DL Corrected Calcium 9.5 8.5-10.1 MG/DL Magnesium Level 2.3 1.6-2.4 MG/DL Total Bilirubin 0.4 0.1-1.0 MG/DL Aspartate Amino Transf (AST/SGOT) 23 5-34 U/L Alanine Aminotransferase (ALT/SGPT) 19 0-55 U/L Alkaline Phosphatase 103 40-136 U/L Total Creatine Kinase 90 29-168 U/L Creatine Kinase MB 3.0 <6.6 NG/ML Myoglobin 86.6 10.0-92.0 NG/ML Troponin I < 0.028 <0.028 NG/ML C-Reactive Protein High Sensitivity 0.41 0.00-0.50 MG/DL B-Type Natriuretic Peptide 14.1 <100.0 PG/ML Total Protein 6.3 L 6.4-8.2 GM/DL Albumin 3.7 3.2-4.5 GM/DL Amylase Level 72 25-125 U/L Lipase 37 8-78 U/L Beta-Hydroxybutyrate (Chem panel) 0.69 H 0.00-0.27 MMOL/L Urine Color YELLOW Urine Clarity CLEAR Urine pH 5.5 5-9 Urine Specific [place] 1.020 1.016-1.022 Urine Protein NEGATIVE NEGATIVE Urine Glucose (UA) 1+ H NEGATIVE Urine Ketones NEGATIVE NEGATIVE Urine Nitrite NEGATIVE NEGATIVE Urine Bilirubin NEGATIVE NEGATIVE Urine Urobilinogen 0.2 < = 1.0 MG/DL Urine Leukocyte Esterase 1+ H NEGATIVE Urine RBC (Auto) NEGATIVE NEGATIVE Urine RBC RARE /HPF Urine WBC 2-5 /HPF Urine Squamous Epithelial Cells 5-10 /HPF Urine Crystals NONE /LPF Urine Bacteria TRACE /HPF Urine Casts PRESENT /LPF Urine Hyaline Casts 0-2 H /LPF Urine Mucus SMALL H /LPF Urine Culture Indicated CULTURE PENDING Micro Results Microbiology 12/22/22 Urine Culture - Final, Complete 3 or more isolates 12/22/22 Blood Culture - Preliminary, Resulted No growth 12/22/22 Blood Culture - Preliminary, Resulted No growth My Orders Orders - SETH,CAMERON K DO Ed Iv/Invasive Line Start (12/22/22 12:53) Ekg Tracing (12/22/22 12:53) O2 (12/22/22 12:53) Monitor-Rhythm Ecg Trace Only (12/22/22 12:53) Amylase (12/22/22 12:53) Bnp [place] (12/22/22 12:53) Cbc With Automated Diff (12/22/22 12:53) Comprehensive Metabolic Panel (12/22/22 12:53) Creatine Kinase (12/22/22 12:53) Creatine Kinase Mb (12/22/22 12:53) Hs C Reactive Protein (12/22/22 12:53) Fibrin Degradation Products (12/22/22 12:53) Lactic Acid Analyzer (12/22/22 12:53) Lipase (12/22/22 12:53) Magnesium (12/22/22 12:53) Protime With Inr (12/22/22 12:53) Partial Thromboplastin Time (12/22/22 12:53) Ua Culture If Indicated (12/22/22 12:53) Erythrocyte Sedimentation Rate (12/22/22 12:53) Myoglobin Serum (12/22/22 12:53) Troponin I [place] (12/22/22 12:53) Chest 1 View, Ap/Pa Only (12/22/22 12:53) Covid 19 Inhouse Test (12/22/22 12:53) Blood Culture (12/22/22 12:53) Urine Culture (12/22/22 12:53) Ed Iv/Invasive Line Start (12/22/22 12:53) Ed Iv/Invasive Line Start (12/22/22 12:53) Vital Signs Adult Sepsis Patie Q15M (12/22/22 12:53) O2 (12/22/22 12:53) Remove Rings In Anticipation O (12/22/22 12:53) Ns Iv 1000 Ml (Sodium Chloride 0.9%) (12/22/22 13:00) Influenza A And B By Pcr (12/22/22 12:53) Isolation Central Supply Req (12/22/22 12:53) Accucheck Stat ONCE (12/22/22 12:55) Beta Hydroxybutyrate (12/22/22 13:07) Ekg Tracing (12/22/22 14:08) Ed Iv/Invasive Line Start (12/22/22 14:50) Ns Iv 1000 Ml (Sodium Chloride 0.9%) (12/22/22 15:00) Ceftriaxone 1 Gm Pre-Mix (Rocephin 1 Gm (12/22/22 14:50) Vital Signs/I&O 12/22/22 12/22/22 12:50 16:33 Temp 36.6 36.6 Pulse 79 64 Resp 14 14 B/P (MAP) 148/79 (102) 122/70 12/23/22 00:00 Intake Total 2050 ml Balance 2050 ml Capillary Refill : Progress Note : Progress Note PPE WORN COVID AND FLU TESTING DONE SEPSIS PROTOCOL INITIATED BASED ON SYMPTOMS OF DYSPNEA AND WEAKNESS PT DOES NOT MEET SEPSIS CRITERIA, SHE HAS NORMAL WBC, NO FEVER, NORMAL VITALS SHE ALSO DOES NOT APPEAR TO BE IN DKA, HER GLUCOSE IS 288, CO2 IS ONLY 19, NO KETONES IN URINE, NORMAL LACTIC ACID GIVEN: -IV FLUIDS -IV ANTIBIOTIC FOR UTI PT HAD UNEVENTFUL ER STAY, AND NO COMPLAINTS FOR REMAINDER OF ER STAY REVIEWED ALL TEST RESULTS, ANTICIPATED COURSE, MEDICATIONS, SYMPTOMATIC TREATMENT, NEED FOR FOLLOW UP AND RETURN PRECAUTIONS REVIEWED PRIOR RECORDS, INCLUDING ER VISITS, ADMITS, H&P'S, CONSULTS, TESTS/PROCEDURES, DISCHARGE SUMMARIES ECG Initial ECG Impression Date: Dec 22, 2022 Initial ECG Impression Time: 13:09 Initial ECG Rate: 75 Initial ECG Rhythm: Normal Sinus Initial ECG Comparisson: Unchanged Comment INTERPRETED BY ME EKG : EKG Time: 14:13 Rate: 80 Rhythm: Normal Sinus Comment IMPROVED/PROPER LEAD PLACEMENT ON SECOND EKG. Diagnostic Imaging Comments CXR--PER RADIOLOGIST REPORT AT 1434 FINDINGS: Normal heart size and central pulmonary vascularity. Calcified granulomas in the left lung. No pleural effusion or pneumothorax. No acute osseous findings. No significant change. IMPRESSION: No acute cardiopulmonary findings. Reviewed: Reviewed by Me Departure Impression Primary Impression: UTI (urinary tract infection) Additional Impressions: Mild dehydration Insulin dependent diabetes mellitus Disposition: 01 HOME, SELF-CARE Condition: Improved Departure-Patient Inst. Decision time for Depature: 14:55 Referrals: DEJAN CARRASCO MD (PCP/Family) Primary Care Physician Patient Instructions: Dehydration, Adult ED, Diabetes and Infections, Urinary Tract Infection, Adult (DC) Add. Discharge Instructions: INCREASE YOUR FLUID INTAKE CONTINUE YOUR REGULAR MEDICATIONS PRESCRIBED FOLLOW UP WITH YOUR DR IN 2-3 DAYS FOR FURTHER CARE, CALL IN THE MORNING TO SCHEDULE AN APPOINTMENT RETURN TO ER IF SYMPTOMS WORSEN All discharge instructions reviewed with patient and/or family. Voiced understanding. Scripts Cefdinir (Cefdinir) 300 Mg Capsule 300 MG PO BID, #20 CAP Prov: CAMERON ANN DO 12/22/22 CAMERON ANN DO Dec 22, 2022 13:06
[2022-12-22 13:33] LABS: BASOPHILS # (AUTO) 0.1 10^3/uL (0.0-0.1); BASOPHILS % (AUTO) 1 % (0-10); EOSINOPHILS # (AUTO) 0.2 10^3/uL (0.0-0.3); EOSINOPHILS % (AUTO) 3 % (0-10); HEMATOCRIT 32 % (35-52); HEMOGLOBIN 10.8 g/dL (11.5-16.0); LYMPHOCYTES # (AUTO) 1.7 10^3/uL (1.0-4.0); LYMPHOCYTES % (AUTO) 21 % (12-44); MEAN CORPUSCULAR HEMOGLOBIN 29 pg (25-34); MEAN CORPUSCULAR HGB CONC 34 g/dL (32-36); MEAN CORPUSCULAR VOLUME 84 fL (80-99); MONOCYTES # (AUTO) 0.7 10^3/uL (0.0-1.0); MONOCYTES % (AUTO) 9 % (0-12); NEUTROPHILS # (AUTO) 5.4 10^3/uL (1.8-7.8); NEUTROPHILS % (AUTO) 66 % (42-75); PLATELET COUNT 431 10^3/uL (130-400); WHITE BLOOD COUNT 8.2 10^3/uL (4.3-11.0)
[2022-12-22 13:53] LABS: FIBRIN DEGRADATION PRODUCTS <= 0.27 UG/ML (0.00-0.49); INR 0.9 (0.8-1.4); PARTIAL THROMBOPLASTIN TIME 25 SEC (24-35)
[2022-12-22 13:54] LABS: ALANINE AMINOTRANSFERASE 19 U/L (0-55); ALBUMIN 3.7 GM/DL (3.2-4.5); ALKALINE PHOSPHATASE 103 U/L (40-136); AMYLASE 72 U/L (25-125); BILIRUBIN,TOTAL 0.4 MG/DL (0.1-1.0); BUN/CREATININE RATIO 22; CALCIUM 9.3 MG/DL (8.5-10.1); CARBON DIOXIDE 19 MMOL/L (21-32); CHLORIDE 99 MMOL/L (98-107); CREATINE KINASE 90 U/L (29-168); CREATININE SERUM 1.27 MG/DL (0.60-1.30); GFR ESTIMATED 46; GLUCOSE 288 MG/DL (70-105); LIPASE 37 U/L (8-78); MAGNESIUM 2.3 MG/DL (1.6-2.4); POTASSIUM 4.2 MMOL/L (3.6-5.0); SODIUM 131 MMOL/L (135-145); TOTAL PROTEIN 6.3 GM/DL (6.4-8.2)
[2022-12-22 13:55] LABS: ERYTHROCYTE SEDIMENTATION RATE 17 MM/HR (0-30)
--- NOTE | 2022-12-22 14:27 | Diagnostic Imaging Report ---
EXAM: CHEST 1 VIEW, AP/PA ONLY INDICATION: Dyspnea. Shortness of air. COMPARISON: 12/01/2019. FINDINGS: Normal heart size and central pulmonary vascularity. Calcified granulomas in the left lung. No pleural effusion or pneumothorax. No acute osseous findings. No significant change. IMPRESSION: No acute cardiopulmonary findings. Dictated by: Dictated on workstation # [id number]
[2022-12-22 14:33] LABS: BILIRUBIN,URINE NEGATIVE (NEGATIVE); CLARITY,URINE CLEAR; COLOR,URINE YELLOW; GLUCOSE, URINE (UA) 1+ (NEGATIVE); KETONES,URINE NEGATIVE (NEGATIVE); LEUKOCYTE ESTERASE ,URINE 1+ (NEGATIVE); NITRITE,URINE NEGATIVE (NEGATIVE); PH,URINE 5.5 (5-9); PROTEIN,URINE NEGATIVE (NEGATIVE)
[2022-12-22 14:45] LABS: BACTERIA,URINE TRACE /HPF; RBC,URINE RARE /HPF
[2022-12-22 14:46] LABS: HYALINE CASTS, URINE 0-2 /LPF
[2022-12-22] MEDS ORDERED: cefTRIAXone 1 GM PRE-MIX 50 ML IV STA (14:50)
[2022-12-22] MEDS ORDERED: CEFD300C3 PO (14:57)
[2022-12-22 16:33] VITALS: BP 122/70
== END 2022-12-22 16:41 | disposition home or self-care (01) ==
LOC: EDUNIT# 12:29 → ER 12:31
DX: N39.0 Urinary tract infection, site not specified (principal); E86.0 Dehydration; E10.40 Type 1 diabetes mellitus with diabetic neuropathy, unspecified; Z28.310 Unvaccinated for COVID-19; Z20.822 Contact with and (suspected) exposure to COVID-19
CPT/HCPCS: 71045; 80053; 81000; 82010; 82150; 82550; 82553; 82947; 83605; 83690; 83735; 83874; 83880; 84484; 85025; 85379; 85610; 85652; 85730; 86141; 87040; 87088; 87636; 93005; 93041

== ENCOUNTER 2023-04-24 20:51 | Emergency (ER) | payer MEDICARE, OTHER ==
[~2023-04-24] VITALS: Ht 157 cm; Wt 65.7 kg
[~2023-04-24 20:51] MED LIST changes: +CEFD300C3 PO; -INSU100I29 SQ; +INSU100I30 SQ
[2023-04-24] MEDS ORDERED: ONDANSETRON 4 MG/2 ML (SDV) Z0FRAN IVP ONE (21:15)
[2023-04-24] MEDS ORDERED: NS IV 1000 ML 1,000 ML IV SCH (21:15)
--- NOTE | 2023-04-24 21:20 | ED General ---
General Chief Complaint: General Problems/Pain Stated Complaint: LIGHTHEADED|HOT|NECK PAIN Nursing Triage Note: PT PRESENTS TO ED WITH C/O GENERAL MALAISE, NECK PAIN, LIGHTHEADEDNESS, AND CONFUSION. PT REPORTS SX BEGAN LAST NOC AND STATES "THIS IS HOW I ALWAYS GET WHEN I'M DEHYDRATED." Source of Information: Patient History of Present Illness Date Seen by Provider: Apr 24, 2023 Time Seen by Provider: 20:55 Initial Comments PT ARRIVES VIA POV FROM HOME PT STATES SHE HAS NOT FELT WELL SINCE YESTERDAY. COMPLAINS OF: -MALAISE AND GENERALIZED WEAKNESS -LIGHTHEADED AND DIZZY -NAUSEA, NO VOMITING, NO DIARRHEA, NO ABDOMINAL PAIN. -"FEEL DISORIENTED IN MY HEAD" -WHEN I WALK I FEEL LIKE I'M GONNA FALL" -C/O POSTERIOR NECK PAIN -SLIGHT SHORTNESS OF BREATH -GETS HOT, BUT NO SWEATS AND NO KNOWN FEVER OR CHILLS SHE IS VOIDING A NORMAL AMOUNT SHE HAS NOT EATEN X 2 DAYS, SHE HAS BEEN DRINKING WATER AND COFFEE. PT IS INSULIN DEPENDENT DIABETIC AND HAS A CGM--STATES IT WAS 135 THE LAST TIME SHE CHECKED HAS TAKEN HER NORMAL DOSES OF INSULIN TODAY PT ALSO HAS HTN ON LISINOPRIL STATES SHE HAS FELT LIKE THIS BEFORE WHEN SHE HAS BEEN DEHYDRATED. PCP: [facility], STUART HERRING. HAD FIRST VISIT 2 WEEKS AGO[address] WAS SEE[address] Florentino RODRIGUEZ Allergies and Home Medications Allergies Coded Allergies: metformin (Verified Allergy, Intermediate, 11/25/18) insulin lispro (Verified Adverse Reaction, Severe, MAKES PTS LEGS SEVERLY WEAK, 11/26/18) MAKES PTS LEGS SEVERLY WEAK Patient Home Medication List Home Medication List Reviewed: Yes Cefdinir (Cefdinir) 300 Mg Capsule, 300 MG PO BID Prescribed by: CAMERON ANN on 12/22/22 1457 Cyclobenzaprine HCl (Cyclobenzaprine HCl) 5 Mg Tablet, 5-10 MG PO TID Prescribed by: CAMERON ANN on 10/30/21 0526 Insulin Detemir (Levemir Flextouch) 100 Unit/1 Ml Insuln.pen, 30 UNIT SQ BID Prescribed by: URVASHI HAYES on 12/02/19 1056 Linagliptin (Tradjenta) 5 Mg Tablet, 5 MG PO DAILY, (Reported) Entered as Reported by: ELIZABETH PARK on 12/01/19 09 Lisinopril (Lisinopril) 20 Mg Tablet, 20 MG PO DAILY, (Reported) Entered as Reported by: ELIZABETH PARK on 12/01/19903 Nitrofurantoin Monohyd/M-Cryst (Macrobid 100 mg Capsule) 100 Mg Capsule, 1 TAB PO BID Prescribed by: CAMERON ANN on 10/30/21 0612 Nitrofurantoin Monohyd/M-Cryst (Macrobid 100 mg Capsule) 100 Mg Capsule, 1 TAB PO BID Prescribed by: CAMERON ANN on 04/25/23 0002 Ondansetron (Ondansetron Odt) 4 Mg Tab.rapdis, 4 MG PO Q4H PRN for NAUSEA/VOMITING-1ST LINE Prescribed by: URVASHI HAYES on 12/02/19 1056 Ondansetron (Ondansetron Odt) 4 Mg Tab.rapdis, 4 MG SL Q8H PRN for NAUSEA/VOMITING Prescribed by: ROHAN LECHUGA on 09/13/22 1455 Ondansetron (Ondansetron Odt) 4 Mg Tab.rapdis, 4 MG PO Q4H Prescribed by: CAMERON ANN on 04/25/23 0002 Review of Systems Review of Systems Constitutional: see HPI, dizziness, malaise, weakness EENTM: no symptoms reported Respiratory: see HPI, short of breath Cardiovascular: no symptoms reported; No chest pain Gastrointestinal: see HPI; No abdominal pain, No diarrhea; loss of appetite, nausea; No vomiting Genitourinary: no symptoms reported Musculoskeletal: see HPI, neck pain Skin: no symptoms reported Psychiatric/Neurological: No Symptoms Reported; Denies Headache, Denies Numbness, Denies Paresthesia, Denies Tingling, Denies Weakness Hematologic/Lymphatic: No Symptoms Reported Immunological/Allergic: no symptoms reported Past Wkuotdm-[id number]-Ikcsba Hx Patient Social History Tobacco Use?: No Substance use?: No Alcohol Use?: No Pt feels they are or have been: No Immunizations Up To Date Influenza Vaccine Up-to-Date: No; Not Current First/Initial COVID19 Vaccinat: NONE Second COVID19 Vaccination Patricio: NONE Third COVID19 Vaccination Date: NONE Seasonal Allergies Seasonal Allergies: Yes Past Medical History Surgery/Hospitalization HX: diabetes, neuropathy, HTN PARTIAL HYST, ZULEYKA, TUMOR REMOVAL ON ARM CARDIAC CATH [address] ESPITIA--NORMAL. Surgeries: Yes (HYST/OVARIES INTACT; LEFT ARM BENIGN TUMOR REMOVED. 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 0.0oz. [id number]; 26.00 BMI Method:Stated General Appearance: No Apparent Distress, WD/WN, Other (DOES NOT APPEAR ILL OR TO BE IN ANY DISCOMFORT OR DISTRESS) HEENT: PERRL/EOMI, Normal ENT Inspection, Moist Mucous Membranes Neck: Normal Inspection Respiratory: Normal Breath Sounds, No Accessory Muscle Use, No Respiratory Distress Cardiovascular: Regular Rate, Rhythm, No Edema, No JVD, No Murmur, Normal Peripheral Pulses Gastrointestinal: Normal Bowel Sounds, No Organomegaly, No Pulsatile Mass, Non Tender, Soft Back: No CVA Tenderness Extremity: Normal Capillary Refill, Normal Inspection, No Pedal Edema Neurologic/Psychiatric: Alert, Oriented x3, No Motor/Sensory Deficits, Normal 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, 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 as 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 Skin: Normal Color, Warm/Dry Focused Exam Lactate Level 04/24/23 21:27: Lactic Acid Level 0.55 Lactic Acid Level Laboratory Tests Test 04/24/23 21:27 Lactic Acid Level 0.55 MMOL/L (0.50-2.00) Progress/Results/Core Measures Suspected Sepsis SIRS Temperature: Pulse: 85 Respiratory Rate: 18 Laboratory Tests 04/24/23 21:27: White Blood Count 6.2 Blood Pressure 151 /107 Mean: 122 04/24/23 21:27: Lactic Acid Level 0.55 Laboratory Tests 04/24/23 21:27: Creatinine 1.13, Platelet Count 290, Total Bilirubin 0.5 Results/Orders Lab Results Laboratory Tests Test 04/24/23 21:27 04/24/23 21:29 04/24/23 22:05 Range/Units White Blood Count 6.2 4.3-11.0 10^3/uL Red Blood Count 3.66 L 3.80-5.11 10^6/uL Hemoglobin 9.8 L 11.5-16.0 g/dL Hematocrit 30 L 35-52 % Mean Corpuscular Volume 82 80-99 fL Mean Corpuscular Hemoglobin 27 25-34 pg Mean Corpuscular Hemoglobin Concent 33 32-36 g/dL Red Cell Distribution Width 13.5 10.0-14.5 % Platelet Count 290 130-400 10^3/uL Mean Platelet Volume 9.8 9.0-12.2 fL Immature Granulocyte % (Auto) 0 % Neutrophils (%) (Auto) 65 42-75 % Lymphocytes (%) (Auto) 21 12-44 % Monocytes (%) (Auto) 10 0-12 % Eosinophils (%) (Auto) 2 0-10 % Basophils (%) (Auto) 1 0-10 % Neutrophils # (Auto) 4.0 1.8-7.8 10^3/uL Lymphocytes # (Auto) 1.3 1.0-4.0 10^3/uL Monocytes # (Auto) 0.6 0.0-1.0 10^3/uL Eosinophils # (Auto) 0.2 0.0-0.3 10^3/uL Basophils # (Auto) 0.1 0.0-0.1 10^3/uL Immature Granulocyte # (Auto) 0.0 0.0-0.1 10^3/uL Sodium Level 133 L 135-145 MMOL/L Potassium Level 3.6 3.6-5.0 MMOL/L Chloride Level 102 98-107 MMOL/L Carbon Dioxide Level 21 21-32 MMOL/L Anion Gap 10 5-14 MMOL/L Blood Urea Nitrogen 19 H 7-18 MG/DL Creatinine 1.13 0.60-1.30 MG/DL Estimat Glomerular Filtration Rate 53 BUN/Creatinine Ratio 17 Glucose Level 101 70-105 MG/DL Lactic Acid Level 0.55 0.50-2.00 MMOL/L Calcium Level 9.2 8.5-10.1 MG/DL Corrected Calcium 9.4 8.5-10.1 MG/DL Magnesium Level 2.0 1.6-2.4 MG/DL Total Bilirubin 0.5 0.1-1.0 MG/DL Aspartate Amino Transf (AST/SGOT) 19 5-34 U/L Alanine Aminotransferase (ALT/SGPT) 15 0-55 U/L Alkaline Phosphatase 89 40-136 U/L Troponin I < 0.028 <0.028 NG/ML B-Type Natriuretic Peptide 12.8 <100.0 PG/ML Total Protein 6.3 L 6.4-8.2 GM/DL Albumin 3.8 3.2-4.5 GM/DL Amylase Level 59 25-125 U/L Lipase 18 8-78 U/L Beta-Hydroxybutyrate (Chem panel) 0.73 H 0.00-0.27 MMOL/L Influenza Type A (RT-PCR) Not Detected Not Detecte Influenza Type B (RT-PCR) Not Detected Not Detecte SARS-CoV-2 RNA (RT-PCR) Not Detected Not Detecte Glucometer 101 70-110 MG/DL Urine Color YELLOW Urine Clarity SL CLOUDY Urine pH 5.5 5-9 Urine Specific [place] 1.010 L 1.016-1.022 Urine Protein NEGATIVE NEGATIVE Urine Glucose (UA) NEGATIVE NEGATIVE Urine Ketones NEGATIVE NEGATIVE Urine Nitrite NEGATIVE NEGATIVE Urine Bilirubin NEGATIVE NEGATIVE Urine Urobilinogen 0.2 < = 1.0 MG/DL Urine Leukocyte Esterase 2+ H NEGATIVE Urine RBC (Auto) NEGATIVE NEGATIVE Urine RBC 0-2 /HPF Urine WBC 2-5 /HPF Urine Squamous Epithelial Cells 0-2 /HPF Urine Crystals PRESENT H /LPF Urine Amorphous Sediment MOD NED URATES H /LPF Urine Bacteria TRACE /HPF Urine Casts PRESENT /LPF Urine Hyaline Casts 2-5 H /LPF Urine Mucus SMALL H /LPF Urine Culture Indicated YES Micro Results Microbiology 04/24/23 Urine Culture - Final, Complete See Comments My Orders Orders - CAMERON ANN DO Ekg Tracing (04/24/23 20:53) Monitor-Rhythm Ecg Trace Only (04/24/23 20:53) Ed Iv/Invasive Line Start (04/24/23 21:15) Amylase (04/24/23 21:15) Bnp [place] (04/24/23 21:15) Cbc With Automated Diff (04/24/23 21:15) Comprehensive Metabolic Panel (04/24/23 21:15) Lactic Acid Analyzer (04/24/23 21:15) Lipase (04/24/23 21:15) Magnesium (04/24/23 21:15) Ua Culture If Indicated (04/24/23 21:15) Troponin I [place] (04/24/23 21:15) Covid 19 Inhouse Test (04/24/23 21:15) Influenza A And B By Pcr (04/24/23 21:15) Ed Iv/Invasive Line Start (04/24/23 21:15) Ns Iv 1000 Ml (Sodium Chloride 0.9%) (04/24/23 21:15) Ondansetron Injection (Zofran Injectio (04/24/23 21:15) Accucheck Stat ONCE (04/24/23 21:15) Beta Hydroxybutyrate (04/24/23 21:25) Hemoglobin A1c (04/24/23 21:25) Ed Iv/Invasive Line Start (04/24/23 22:26) Lactated Ringers (Lr 1000 Ml Iv Solution (04/24/23 22:30) Urine Culture (04/24/23 22:05) Ceftriaxone Iv/Im (Rocephin Iv/Im) (04/24/23 22:45) Rx-Ondansetron Po (Rx-Zofran Po) (04/25/23 00:03) Medications Given in ED Vital Signs/I&O 04/24/23 04/25/23 21:10 00:06 Temp 36.6 Pulse 85 75 Resp 18 18 B/P (MAP) 151/107 (122) 111/57 Pulse Ox 98 96 O2 Delivery Room Air Room Air Capillary Refill : Blood Pressure Mean: 122 Progress Note : Progress Note GIVEN: -IV FLUIDS -ZOFRAN -ROCEPHIN PT FEELS MUCH BETTER AT DISMISSAL--NAUSEA IS GONE, DOES NOT FEEL LIGHTHEADED. NO VOMITING DURING ER STAY PT IS ABLE TO TOLERATE WATER AND ICE CHIPS, AND IS ABLE TO VOID TWICE DURING ER STAY. PT WALKS WITHOUT DIFFICULTY LABS FAIRLY UNREMARKABLE OTHER THAN UTI--NO EVIDENCE OF SEPSIS OR DKA OR SEVERE DEHYDRATION VITALS STABLE NO FEVER, NO HYPOTENSION OR TACHYCARDIA, NO HYPOXIA NO DYSPNEA DISCUSSED TEST RESULTS, ANTICIPATED COURSE, SYMPTOMATIC TREATMENT, DIET, MEDICATIONS, NEED FOR FOLLOW UP AND RETURN PRECAUTIONS. PT FEELS COMFORTABLE GOING HOME REVIEWED PRIOR RECORDS, INCLUDING ER VISITS, ADMITS/H&P'S/CONSULTS/DISCHARGE SUMMARIES, TESTS/PROCEDURES ECG Initial ECG Impression Date: Apr 24, 2023 Initial ECG Impression Time: 21:21 Initial ECG Rate: 79 Initial ECG Rhythm: Normal Sinus Initial ECG Intervals: Normal Initial ECG Comparisson: No Previous ECG Available Departure Impression Primary Impression: NAUSEA Additional Impressions: UTI (urinary tract infection) Mild dehydration IDDM (insulin dependent diabetes mellitus) Disposition: HOME, SELF-CARE Condition: Improved Departure-Patient Inst. Decision time for Depature: 23:55 Referrals: PATRICK HERRING APRN (PCP) Primary Care Physician Patient Instructions: Dehydration, Adult (DC), Nausea and Vomiting, Adult, Sick Day Management for Diabetics, Urinary Tract Infection, Adult ED Add. Discharge Instructions: CONTINUE YOUR MEDICATIONS PRESCRIBED CLEAR LIQUIDS--WATER, BROTH, JELLO, GATORADE BRATS DIET--BANANAS, RICE, APPLESAUCE, TOAST, SALTINES FOLLOW UP WITH YOUR DR ON FRIDAY FOR FURTHER CARE, RETURN TO ER IF SYMPTOMS WORSEN All discharge instructions reviewed with patient and/or family. Voiced understanding. Scripts Nitrofurantoin Monohyd/M-Cryst (Macrobid 100 mg Capsule) 100 Mg Capsule 1 TAB PO BID, #20 CAP Prov: CAMERON ANN DO 04/25/23 Ondansetron (Ondansetron Odt) 4 Mg Tab.rapdis 4 MG PO Q4H for Nausea/Vomiting, #10 TAB Prov: CAMERON ANN DO 04/25/23 CAMERON ANN DO Apr 24, 2023 21:20
[2023-04-24 21:52] LABS: BASOPHILS # (AUTO) 0.1 10^3/uL (0.0-0.1); BASOPHILS % (AUTO) 1 % (0-10); EOSINOPHILS # (AUTO) 0.2 10^3/uL (0.0-0.3); EOSINOPHILS % (AUTO) 2 % (0-10); HEMATOCRIT 30 % (35-52); HEMOGLOBIN 9.8 g/dL (11.5-16.0); LYMPHOCYTES # (AUTO) 1.3 10^3/uL (1.0-4.0); LYMPHOCYTES % (AUTO) 21 % (12-44); MEAN CORPUSCULAR HEMOGLOBIN 27 pg (25-34); MEAN CORPUSCULAR HGB CONC 33 g/dL (32-36); MEAN CORPUSCULAR VOLUME 82 fL (80-99); MEAN PLATELET VOLUME 9.8 fL (9.0-12.2); MONOCYTES # (AUTO) 0.6 10^3/uL (0.0-1.0); MONOCYTES % (AUTO) 10 % (0-12); NEUTROPHILS % (AUTO) 65 % (42-75); PLATELET COUNT 290 10^3/uL (130-400); WHITE BLOOD COUNT 6.2 10^3/uL (4.3-11.0)
[2023-04-24 22:06] LABS: ALBUMIN 3.8 GM/DL (3.2-4.5); CHLORIDE 102 MMOL/L (98-107); POTASSIUM 3.6 MMOL/L (3.6-5.0); SODIUM 133 MMOL/L (135-145)
[2023-04-24 22:08] LABS: AMYLASE 59 U/L (25-125); CALCIUM 9.2 MG/DL (8.5-10.1)
[2023-04-24 22:09] LABS: GLUCOSE 101 MG/DL (70-105); TOTAL PROTEIN 6.3 GM/DL (6.4-8.2)
[2023-04-24 22:10] LABS: CARBON DIOXIDE 21 MMOL/L (21-32)
[2023-04-24 22:11] LABS: BILIRUBIN,TOTAL 0.5 MG/DL (0.1-1.0)
[2023-04-24 22:12] LABS: ALKALINE PHOSPHATASE 89 U/L (40-136)
[2023-04-24 22:13] LABS: CREATININE SERUM 1.13 MG/DL (0.60-1.30); GFR ESTIMATED 53
[2023-04-24 22:13] LABS: BILIRUBIN,URINE NEGATIVE (NEGATIVE); CLARITY,URINE SL CLOUDY; COLOR,URINE YELLOW; GLUCOSE, URINE (UA) NEGATIVE (NEGATIVE); KETONES,URINE NEGATIVE (NEGATIVE); LEUKOCYTE ESTERASE ,URINE 2+ (NEGATIVE); NITRITE,URINE NEGATIVE (NEGATIVE); PH,URINE 5.5 (5-9); PROTEIN,URINE NEGATIVE (NEGATIVE)
[2023-04-24 22:14] LABS: BUN/CREATININE RATIO 17
[2023-04-24 22:15] LABS: ALANINE AMINOTRANSFERASE 15 U/L (0-55)
[2023-04-24 22:17] LABS: LIPASE 18 U/L (8-78)
[2023-04-24 22:26] LABS: AMORPHOUS SEDIMENT,UR MOD AMOR URATES /LPF; BACTERIA,URINE TRACE /HPF; RBC,URINE 0-2 /HPF; SQUAMOUS EPITHELIAL CELL,UR 0-2 /HPF
[2023-04-24] MEDS ORDERED: LACTATED RINGERS 1,000 ML IV ONE (22:30)
[2023-04-24] MEDS ORDERED: cefTRIAXone IV/IM 1,000 MG in NS (IVPB) 50 ML IV ONE (22:45)
[2023-04-25] MEDS ORDERED: ONDA4TAB11 PO (00:02)
[2023-04-25] MEDS ORDERED: NITR-65 PO (00:02)
[2023-04-25] MEDS ORDERED: RX-ONDANSETRON 4 MG ODT (ZOFRAN) PPK #4 PO STA (00:03)
[2023-04-25 00:06] VITALS: BP 111/57
== END 2023-04-25 00:20 | disposition home or self-care (01) ==
LOC: EDUNIT# 20:51 → ER 20:52
DX: N39.0 Urinary tract infection, site not specified (principal); E86.0 Dehydration; E10.9 Type 1 diabetes mellitus without complications; I10 Essential (primary) hypertension; Z79.899 Other long term (current) drug therapy; Z20.822 Contact with and (suspected) exposure to COVID-19; Z28.310 Unvaccinated for COVID-19
CPT/HCPCS: 36415; 80053; 81000; 82010; 82150; 82947; 83036; 83605; 83690; 83735; 83880; 84484; 85025; 87088; 87636; 93005; 93041